=== PATIENT | female | born 1950 | race Caucasian/White ===

== ENCOUNTER 2018-06-07 15:24 | Outpatient (CLI) | payer MEDICARE, BC, SELFPAY ==
--- NOTE | 2018-06-07 15:41 | DI.RAD_ITS ---
SYMPTOMS/DIAGNOSIS: COUGH, UPPER RESPIRATORY INFECTION, J06.9 CHEST X-RAY, PA AND LATERAL: Comparison is 11/25/16. The heart size and pulmonary vasculature are stable and within normal limits. The lungs show no focal infiltrates, effusions or pneumothoraces. The bones appear intact. IMPRESSION: No acute pulmonary process.
== END 2018-06-07 15:44 ==
PROVIDERS: PCP Emergency Medicine; Visit Provider Internal Medicine
DX: R05 Cough (principal); J06.9 Acute upper respiratory infection, unspecified
CPT/HCPCS: 71046

== ENCOUNTER 2018-09-21 14:18 | Outpatient (CLI) | payer MEDICARE, BC, SELFPAY ==
--- NOTE | 2018-09-21 13:50 | DI.RAD_ITS ---
SYMPTOMS/DIAGNOSIS: COUGH, R05, ASTHMA, J45.909; BACK PAIN CHEST X-RAY, PA AND LATERAL: Comparison is 06/07/18. The heart is normal in size. The lungs are clear. The mediastinal structures and pleura appear intact. IMPRESSION: Normal chest. THORACIC SPINE: AP and lateral views. There is a very mild S-type scoliotic curvature of the spine. No acute fractures or subluxations are seen. Moderate degenerative changes are present in the spine. No acute fractures or subluxations are present. IMPRESSION: Degenerative changes in the thoracic spine. No acute abnormality.
[2018-09-21 15:02] LABS: Abs Immature Grans 0.02 k/cumm (0.0-0.09); Absolute Basophil Count 0.04 k/cumm (0.0-0.2); Absolute Lymphocyte Count 2.11 k/cumm (1.2-3.4); Absolute Monocyte Count 1.05 k/cumm (0.11-0.7); Absolute Neutrophil Count 3.65 k/cumm (1.2-6.7); Basophils % 0.6; Eosinophils % 4.2; HCT 42.1 % (36.0-46.0); Immature Grans % 0.3; Lymphocytes % 29.4; Mean Corp. HGB Concentration 33.3 g/dL (32.0-36.0); Mean Corpuscular Volume 90.1 fL (80-95); Mean Platelet Volume 9.8 fL (8.0-11.0); Monocytes % 14.6; Neutrophils % 50.9; Platelet Count 313 x1000/uL (130-400); RBC 4.67 m/cumm (4.00-5.20); RBC Distribution Width 14.1 % (11.7-14.6); White Blood Cell Count 7.17 k/cumm (4.4-10.8)
[2018-09-21 15:23] LABS: C-Reactive Protein 1.63 mg/dL (0.0-0.3)
[2018-09-21 16:04] LABS: ESR 21 MM/HR (0-30)
[2018-09-22 13:00] LABS: Albumin 60.7 % (55.8-66.1); Total Protein 7.2 g/dl (6.3-8.2)
== END 2018-09-21 14:38 ==
PROVIDERS: PCP Emergency Medicine; Visit Provider Emergency Medicine
DX: J45.909 Unspecified asthma, uncomplicated (principal); R07.1 Chest pain on breathing; M54.6 Pain in thoracic spine; M47.814 Spondylosis without myelopathy or radiculopathy, thoracic region
CPT/HCPCS: 36415; 85652; 71046; 72072; 84165; 85025; 86140

== ENCOUNTER 2018-10-05 01:27 | Outpatient (CLI) | payer MEDICARE, BC, SELFPAY ==
--- NOTE | 2018-10-05 | PFT_ITS ---
PULMONARY FUNCTION TEST REPORT Patient - Carisa Phillips 48 DATE OF SERVICE October 05, 2018 REQUESTING PROVIDER Jose Angel Walton D.O. INTERPRETATION OF STUDY Spirometry shows no evidence of obstructive airways disease. No bronchodilator response. LUNG VOLUMES - Lung volumes show no evidence of restriction. DIFFUSION CAPACITY- Normal. AIRWAY RESISTANCE - Normal. IMPRESSION Normal pulmonary function study. Clinical correlation recommended. When this study was compared to previous one from 05/06/12, the patient has a stable FVC and FEV1. Maria R Vuong M.D. ROSALINA/ T- 10/06/18
[2018-10-05] MEDS: Albuterol HFA 18 GM 200 PUFF INH IH (10:43)
[2018-10-05] MEDS: Inhaler, Assist Device 1 EACH MC (10:43)
== END 2018-10-05 01:47 ==
PROVIDERS: PCP Emergency Medicine; Visit Provider Emergency Medicine
DX: J45.909 Unspecified asthma, uncomplicated (principal); R05 Cough; R06.09 Other forms of dyspnea
CPT/HCPCS: 94060; 94150; 94726; 94729

== ENCOUNTER 2018-11-10 10:31 | Outpatient (CLI) | payer MEDICARE, BC, SELFPAY ==
[2018-11-10 13:39] LABS: ALT 47 U/L (12-78); AST 21 U/L (15-37); Albumin 3.9 g/dL (3.4-5.0); Alkaline Phosphatase 91 U/L (46-116); Anion Gap 12.3 mmol/L (3-11); BUN 15 mg/dL (7-18); Bilirubin, Total 0.4 mg/dL (0.2-1.0); CO2 25.7 mmol/L (21.0-32.0); CREATININE 0.84 mg/dL (0.55-1.02); Calcium 9.5 mg/dL (8.5-10.1); Calculated LDL 156 mg/dL; Chloride 106 mmol/L (98-107); Cholesterol 253 mg/dL (50-200); Glucose 110 mg/dL (70-100); HDL Cholesterol 79 mg/dL (40-60); Sodium 144 mmol/L (136-145); TSH (W/Ref FT4) 1.92 uIU/mL (0.358-3.74); Total Protein 7.3 g/dL (6.4-8.2); Triglyceride 93 mg/dL (30-150)
[2018-11-10 14:07] LABS: ESR 23 MM/HR (0-30)
== END 2018-11-10 10:51 ==
PROVIDERS: PCP Emergency Medicine; Visit Provider Internal Medicine
DX: I10 Essential (primary) hypertension (principal); J45.909 Unspecified asthma, uncomplicated
CPT/HCPCS: 36415; 80053; 80061; 83721; 85652; 84443

== ENCOUNTER 2018-11-30 00:58 | Outpatient (CLI) | payer MEDICARE, BC, SELFPAY ==
--- NOTE | 2018-11-30 11:25 | DI.MAMMO_ITS ---
SYMPTOMS/DIAGNOSIS: SCREENING, ADULT MEDICAL EXAM, Z00.00 MAMMOGRAM: Mammograms were interpreted according to the usual protocol including computer analysis with CAD system, tomosynthesis and C view imaging. Comparison with prior examinations. Breast density B. No suspicious masses or microcalcifications are seen. There is increased prominence of a focal asymmetric density in the outer left breast seen on the craniocaudad view. This area should be further evaluated with spot compression view. Ultrasound may be indicated at that time. IMPRESSION: Additional views of the left breast as described above. Category 0. MQSA ASSESSMENT OF FINDINGS: Incomplete: Needs additional imaging evaluation. Category 0. Patient will receive a letter notifying them of these results. BI-RADS category B. There are scattered areas of fibroglandular density.
== END 2018-11-30 01:18 ==
PROVIDERS: PCP Emergency Medicine; Visit Provider Internal Medicine
DX: Z12.31 Encounter for screening mammogram for malignant neoplasm of breast (principal); R92.8 Other abnormal and inconclusive findings on diagnostic imaging of breast
CPT/HCPCS: 77063; 77067

== ENCOUNTER 2018-12-03 01:06 | Outpatient (CLI) | payer MEDICARE, BC, SELFPAY ==
--- NOTE | 2018-12-03 14:44 | DI.COMBO_ITS ---
SYMPTOM/DIAGNOSIS: INCREASED PROMINENCE OF FOCAL ASYMMETRIC DENSITY LT LEFT BREAST ADDITIONAL VIEWS AND LEFT BREAST ULTRASOUND: Additional images are interpreted according to the usual protocol including tomosynthesis and 2D imaging. Additional views of the left breast again show an asymmetric density in the posterior outer left breast on the craniocaudad view. On the additional views, it appears similar compared to prior examinations dating back to 2013. A left breast ultrasound was performed of the upper outer and lower outer quadrants. No suspicious cystic or solid masses are seen. A benign appearing lymph node is seen in the upper outer quadrant. IMPRESSION: No definite evidence for malignancy. A 6 month follow up left breast mammogram is requested for re-evaluation. Category 3. MQSA ASSESSMENT OF FINDINGS: Probably benign. Six month follow-up recommended. Category 3. Patient will receive a letter notifying them of these results. BI-RADS category B. There are scattered areas of fibroglandular density. The findings were discussed with the patient on the date of the examination.
== END 2018-12-03 01:26 ==
PROVIDERS: PCP Emergency Medicine; Visit Provider Internal Medicine
DX: Z12.31 Encounter for screening mammogram for malignant neoplasm of breast (principal); R92.8 Other abnormal and inconclusive findings on diagnostic imaging of breast; N63.21 Unspecified lump in the left breast, upper outer quadrant; R59.0 Localized enlarged lymph nodes
CPT/HCPCS: 76642; 77063; 77067

== ENCOUNTER 2019-05-20 07:00 | Outpatient (CLI) | payer MEDICARE, BC, SELFPAY ==
[2019-05-20 12:31] LABS: Abs Immature Grans 0.03 k/cumm (0.0-0.09); Absolute Basophil Count 0.03 k/cumm (0.0-0.2); Absolute Lymphocyte Count 2.16 k/cumm (1.2-3.4); Absolute Monocyte Count 0.84 k/cumm (0.11-0.7); Absolute Neutrophil Count 4.52 k/cumm (1.2-6.7); Basophils % 0.4; Eosinophils % 3.8; HCT 40.9 % (36.0-46.0); HGB 13.8 g/dL (12.0-15.5); Immature Grans % 0.4 %; Lymphocytes % 27.4; Mean Corp. HGB Concentration 33.7 g/dL (32.0-36.0); Mean Corpuscular Hemoglobin 29.9 pg (27.0-33.0); Mean Corpuscular Volume 88.5 fL (80-95); Mean Platelet Volume 9.9 fL (8.0-11.0); Monocytes % 10.7; Neutrophils % 57.3; Platelet Count 369 x1000/uL (130-400); RBC 4.62 m/cumm (4.00-5.20); RBC Distribution Width 13.9 % (11.7-14.6); White Blood Cell Count 7.88 k/cumm (4.4-10.8)
[2019-05-20 12:54] LABS: ALT 38 U/L (14-59); AST 21 U/L (15-37); Albumin 3.9 g/dL (3.4-5.0); Alkaline Phosphatase 86 U/L (46-116); Amylase 44 U/L (25-115); Anion Gap 13.9 mmol/L (3-11); BUN 14 mg/dL (7-18); Bilirubin, Total 0.5 mg/dL (0.2-1.0); CO2 24.1 mmol/L (21.0-32.0); CREATININE 0.74 mg/dL (0.55-1.02); Calcium 9.5 mg/dL (8.5-10.1); Chloride 104 mmol/L (98-107); Glucose 105 mg/dL (74-106); Lipase 149 U/L (73-393); Potassium 4.1 mmol/L (3.5-5.1); Sodium 142 mmol/L (136-145); Total Protein 7.4 g/dL (6.4-8.2)
== END 2019-05-20 07:20 ==
PROVIDERS: PCP Emergency Medicine; Visit Provider Emergency Medicine
DX: I10 Essential (primary) hypertension (principal); R10.9 Unspecified abdominal pain
CPT/HCPCS: 36415; 80053; 83690; 82150; 85025

== ENCOUNTER 2019-05-24 01:17 | Outpatient (CLI) | payer MEDICARE, BC, SELFPAY ==
--- NOTE | 2019-05-24 10:17 | DI.MAMMO_ITS ---
EXAM: MG MAMMO DIAGNOSTIC UNI CLINICAL HISTORY: F/U ABNORMAL MAMMO, R92.8, 6-MO F/U. TECHNIQUE: Full field digital CC and MLO mammographic images were obtained with 3D tomosynthesis and utilizing computer aided detection (CAD). COMPARISON: 2009 to 2018. FINDINGS: This is a six-month follow-up for an area of asymmetric density in the lateral left breast. Masses/Architectural Distortion: None seen. Microcalcifications: No suspicious pleomorphic-type calcifications are seen. Skin Thickening/Nipple Retraction: None. Axilla: Unremarkable. IMPRESSION: 1. BI-RADS category 1, negative. No significant interval change with no specific features of maligna ncy noted. 2. Bilateral screening should be resumed in 6 months. BI-RADS Cat 1 - Negative Breast Density - Category B - Scattered areas of fibroglandular density A negative radiographic report should not delay biopsy if a dominant or clinically suspicious mass is present. Up to ten percent of cancers are not identified on mammography. A negative report may reinforce clinical impression. Adenosis and dense breasts may obscure an underlying neoplasm. False positive reports average 6 to 10%. Patient will receive a letter notifying them of these results.
== END 2019-05-24 01:37 ==
PROVIDERS: PCP Emergency Medicine; Visit Provider Internal Medicine
DX: Z12.31 Encounter for screening mammogram for malignant neoplasm of breast (principal); R92.8 Other abnormal and inconclusive findings on diagnostic imaging of breast; N64.59 Other signs and symptoms in breast
CPT/HCPCS: 77061; 77065; G0279

== ENCOUNTER 2019-05-26 02:29 | Outpatient (CLI) | payer MEDICARE, BC, SELFPAY ==
[2019-05-26] MEDS: Breeza Beverage 473 ML BTL PO ×2 (07:12→07:13)
[2019-05-26] MEDS: Omnipaque 350 MG/ML 50 ML BTL PO (07:13)
[2019-05-26 07:20] LABS: CREATININE 0.75 mg/dL (0.55-1.02)
--- NOTE | 2019-05-26 08:56 | DI.CT_ITS ---
EXAM: CT ABDOMEN PELVIS W CLINICAL HISTORY: ABD PAIN,R10.9 TECHNIQUE: CT examination of the abdomen and pelvis was performed with a bolus infusion of 50 cc of Omnipaque 350 and ingestion of dilute barium. COMPARISON: No exams were available for comparison FINDINGS: Images obtained through the lung bases are unremarkable. There is a question of wall thickening of the distal esophagus, endoscopy may be considered if clinically appropriate. There is mild hepatic steatosis. Spleen is unremarkable in appearance. No focal hepatic abnormality is seen. Gallbladder and bile ducts are CT normal. Pancreas appears normal. Adrenals and kidneys are normal with incidental small left renal cysts. No urinary tract calcification or obstruction. N o significant abdominal wall hernia. No significant abdominal or pelvic adenopathy. Abdominal aorta is of normal diameter and no major vascular abnormality is seen. Appendix is normal. No evidence o f diverticulitis or bowel obstruction. IMPRESSION: Mild hepatic steatosis. Question wall thickening of the distal esophagus, correlation with endoscopy may be obtained if clini silvia indicated to rule out esophagitis or neoplasm.
[2019-05-26] MEDS: Omnipaque 350 MG/ML 100 ML BTL IJ (09:04)
== END 2019-05-26 02:49 ==
PROVIDERS: PCP Emergency Medicine; Visit Provider Emergency Medicine
DX: R10.9 Unspecified abdominal pain (principal); K76.0 Fatty (change of) liver, not elsewhere classified; N28.1 Cyst of kidney, acquired; K22.8 Other specified diseases of esophagus
CPT/HCPCS: 74177; 82565; J3490; Q9967

== ENCOUNTER 2019-06-07 12:13 | Outpatient (CLI) | payer MEDICARE, BC, SELFPAY ==
[2019-06-07 13:51] LABS: Amylase 46 U/L (25-115); Lipase 158 U/L (73-393)
== END 2019-06-07 12:33 ==
PROVIDERS: PCP Emergency Medicine; Visit Provider Emergency Medicine
DX: R10.9 Unspecified abdominal pain (principal)
CPT/HCPCS: 36415; 83690; 82150

== ENCOUNTER → 2019-06-09 13:19 | Outpatient (BNVA) | payer MEDICARE, BC, SELFPAY | PROVIDERS: PCP Emergency Medicine; Referring Provider Emergency Medicine; Visit Provider Physical Therapy Assistant | DX: I10 Essential (primary) hypertension (principal); R10.9 Unspecified abdominal pain; R19.7 Diarrhea, unspecified | CPT/HCPCS: 99213 ==

== ENCOUNTER 2019-06-10 13:15 | Outpatient (REF) | payer MEDICARE, BC, SELFPAY ==
[2019-06-11 14:23] LABS: Campylobacter PCR Negative (Negative); Salmonella PCR Negative (Negative); Shiga Toxin PCR Negative (Negative); Shigella/Enteroinvasive Ecoli Negative (Negative)
== END 2019-06-10 13:35 ==
LOC: NCHCN 13:15
PROVIDERS: PCP Emergency Medicine; Visit Provider Physical Therapy Assistant
DX: R19.7 Diarrhea, unspecified (principal)
CPT/HCPCS: 87505; 87177

== ENCOUNTER 2019-06-14 09:31 | Day surgery (SDC) | payer MEDICARE, BC, SELFPAY ==
[2019-06-14 09:54] VITALS: BP 148/74; PULSE 84; RESP 16; TEMP 36.6; O2SAT 99
[2019-06-14] MEDS: Lactated Ringers 1,000 ML 80 ML IV (10:30)
--- NOTE | 2019-06-14 10:52 | W.PM.DSUDISC ---
Discharge Plan Disposition Patient Disposition: HOME Condition: Good Discharge Details Reason For Visit: EGD/Colonoscopy Attending Provider: Temi Montalvo Primary Care Provider: Jose Angel Walton Home Meds and New Rx's Prescriptions: Continued Breo Ellipta 200-25 mcg/dose blister with device 1 ea Inhalation DAILY Qty: 60 RF: 5 omega 3-yhw-stm-fish oil [Fish Oil] 1,000 mg (120 mg-180 mg) capsule 1 cap PO DAILY RF: 0 cholecalciferol (vitamin D3) 2,000 unit capsule 2,000 unit PO DAILY RF: 0 multivitamin Capsule 1 cap PO DAILY RF: 0 metoclopramide HCl [Reglan] 5 mg tablet 5 mg PO QAC Qty: 2 RF: 0 prochlorperazine maleate [Compazine] 5 mg tablet 5 mg PO Q4H PRN PRN (Reason: nausea and vomiting) Qty: 3 RF: 0 calcium carbonate [Calcium 600] 600 MG tablet 600 mg PO DAILY RF: 0 albuterol sulfate 8.5 GM HFA aerosol inhaler 2 puff Inhalation Q4H PRN Qty: 1 RF: 12 fluticasone propionate 16 GM spray,suspension 1 spray NS BID RF: 0 losartan-hydrochlorothiazide [Hyzaar] 100-25 mg tablet 1 tab PO DAILY Qty: 90 RF: 3 sertraline 50 mg tablet 50 mg PO DAILY Qty: 90 RF: 3 diltiazem HCl [Cardizem CD] 120 mg capsule,extended release 24hr 120 mg PO DAILY Qty: 90 RF: 3 potassium chloride 10 mEq tablet,ER particles/crystals 10 meq PO BID Qty: 180 RF: 4 pantoprazole [Protonix] 40 mg tablet,delayed release (DR/EC) 40 mg PO BID RF: 0 Discharge Instructions Additional Instructions: Findings: Your upper endoscopy was unremarkable. Routine biopsies were done. My office will contact you with biopsy results. One polyp was removed from the colon and random biopsies were done. Follow up: Plan for a colonoscopy in 5 years Please call if you develop: fevers >101.5 Nausea or Vomiting Abdominal pain that is not transient DAY SURGERY UNIT POST COLONOSCOPY INSTRUCTIONS 1. Because there will be medication in your system for the next 24 hours, you may feel a little sleepy. Your coordination will be affected. Therefore: a. Do not drive or operate dangerous equipment for 24 hours. b. Do not drink alcohol beverages for 24 hours (not even beer). c. Plan to go home and rest for the day. 2. Generally there are no restrictions on your activity after a day or so has gone by, but you may feel a bit fatigued for a few days. 3 After you arrive home you may have a light meal and return to a normal diet as you can tolerate it without feeling sick to your stomach. 4. After surgery, you may feel pain or discomfort. This should be only transient, but if it persists please contact your doctor. 5. If there are any questions regarding the findings of your procedure, please feel free to contact your doctor. 6. If you are unable to contact your doctor with a problem, contact the hospital at [phone]. 7. Continue all your regular medications unless directed otherwise. I understand the above instructions and have no questions. Signature of Patient or Responsible Adult Escort Date/Time Name of Responsible Adult Escort Signature of Nurse Date/Time Activity:: Activity as Tolerated Diet:: As Tolerated Discharge Orders Discharge Orders: Discharge Order (Routine); Ordered 06/14/19 Ordered By: Temi Montalvo DS: Diagnosis Discharge Diagnosis (1) GERD (gastroesophageal reflux disease): Status: Chronic (2) Colon polyp: Status: Acute
--- NOTE | 2019-06-14 11:30 | BOWEL_PTH ---
PATIENT: Carisa Phillips LOC: [facility] U#:[id number] AGE/SX: 69/F ROOM: RE06/14/[address]: Temi Montalvo MD : 1950 BED: DIS: 06/14/2019 SPEC #: [id number] RECD: 06/14/19 13:09 STATUS: RAMONA RE #: [id number] LEONEL: 06/14/19 11:[address]: Temi Montalvo DEPT: Surgical Specimen RECD BY: Mary Beth Lanza ENTERED: 06/14/19 13:10 SP TYPE: Bowel OTHR DR: Jose Angel Walton DO Tissues: 1 - BIOPSY BOWEL 2 - STOMACH BIOPSY 3 - BIOPSY BOWEL 4 - BIOPSY BOWEL Procedures: GROSS AND MICRO LEVEL 4 Comments: [id number]
[2019-06-14 13:00] VITALS: BP 158/73; PULSE 81; RESP 18; TEMP 36.4; O2SAT 100
[2019-06-14] MEDS: Simethicone 80 MG CHEW PO (13:17)
--- NOTE | 2019-06-15 08:04 | ENDO_ITS ---
REPORT OF OPERATIVE PROCEDURE DATE OF PROCEDURE June 14, 2019 PREOPERATIVE DIAGNOSES 1. Reflux. 2. Change in bowel habits. POSTOPERATIVE DIAGNOSES 1. Small hiatal hernia. 2. Minimal gastritis. 3. Cecal polyp. 4. Diverticulosis. PROCEDURES 1. EGD with duodenal biopsy and gastric biopsies. 2. Colonoscopy with snare polypectomy and random colon biopsies. SURGEON Temi Montalvo M.D. ANESTHESIA General. INDICATIONS This is a 69-year-old woman who complains of flushing, crampy abdominal pain and diarrhea. Her last c olonoscopy in 2012 was normal. She also has a longstanding history of reflux and has had to increase her PPI recently. PROCEDURE DESCRIPTION The patient was placed in the left lateral decubitus position. Propofol was titrated to sedation. The scope was advanced into her esophagus and down into the stomach and duodenum. At this point, the pat ient may have had some bronchospasm. Her saturations decreased, so I removed the scope. With a withdr aw thrust and oxygenation, her saturations improved and I was able to continue with the procedure. Th e scope was re-inserted into the esophagus under direct visualization and passed down into the stomac h and duodenum. Biopsies were taken from the second portion to evaluate for celiac disease. The duode nal bulb exhibited some minimal inflammation. The gastric antrum also exhibited some minimal inflamma tion, which was unlikely to be symptomatic. I did take routine biopsies from the antrum to check for h. Pylori. Retroflexed view of the fundus and lesser curvature showed a small hiatal hernia. The GE j unction showed no evidence of masses, inflammation, Vieira's or strictures. The scope was slowly wi thdrawn with no other esophageal lesions found. Digital rectal examination revealed some slightly decreased sphincter tone. The scope was advanced to the cecum without difficulty. She was noted to have a slightly tortuous colon. The ileocecal valve a nd appendiceal orifice were clearly identified. There was a difficult to access polyp just on the oth er side of the ileocecal valve, which required re-insertion of the scope of the several times. I was able to remove most of it using snare polypectomy with minimal cautery. The remainder of the polyp wa s removed with the cold forceps with good result. This was less than 1 cm in size. The scope was slow ly withdrawn with random biopsies performed throughout to evaluate for possible microscopic colitis a s the cause of her diarrhea. No other abnormalities were seen throughout the ascending, transverse, o r descending colon. The sigmoid region exhibited some mild diverticular change. The rectum was normal including on retroflexed view with the exception of some prominent internal hemorrhoids. She tolerat ed the procedure well and was stable to Recovery. She will need a followup colonoscopy in five years pending biopsy results.
== END 2019-06-14 13:55 | disposition home or self-care (01) ==
PROVIDERS: PCP Emergency Medicine; Visit Provider Surgery
PROC: (CPT 45385; principal; 2019-06-14 11:30)
DX: K21.9 Gastro-esophageal reflux disease without esophagitis (principal); R19.4 Change in bowel habit; K31.9 Disease of stomach and duodenum, unspecified; D12.0 Benign neoplasm of cecum; K44.9 Diaphragmatic hernia without obstruction or gangrene; K57.30 Diverticulosis of large intestine without perforation or abscess without bleeding; K29.70 Gastritis, unspecified, without bleeding; K64.8 Other hemorrhoids
CPT/HCPCS: 45385; 45380; 43239; 88305; J2704

== ENCOUNTER 2020-01-05 00:51 | Outpatient (CLI) | payer MEDICARE, BC, SELFPAY ==
--- NOTE | 2020-01-05 12:45 | DI.MAMMO_ITS ---
EXAM: MAMMO SCREENING CLINICAL HISTORY: screening,Z12.39 TECHNIQUE: Mammograms were interpreted according to the usual protocol including computer analysis w Accurence CAD system, tomosynthesis and C-view imaging. COMPARISON: 2010 through 2019 FINDINGS: The breasts are composed of scattered fibroglandular densities, Breast Density category B. No suspicious masses or suspicious microcalcifications are seen. Vascular calcifications are noted. No skin thickening or abnormal axillary lymph nodes are seen. There has been no significant change from prior exams. IMPRESSION: BI-RADS Category 1, Negative mammogram Yearly screening mammography is recommended. Breast Density Category B, scattered fibroglandular densities. A negative radiographic report should not delay biopsy if a dominant or clinically suspicious mass is present. Up to ten percent of cancers are not identified on mammography. A negative report may reinforce clinical impression. Adenosis and dense breasts may obscure an underlying neoplasm. False positive reports average 6 to 10%. Patient will receive a letter notifying them of these results.
== END 2020-01-05 01:11 ==
PROVIDERS: PCP Nurse Practitioner; Visit Provider Nurse Practitioner
DX: Z12.31 Encounter for screening mammogram for malignant neoplasm of breast (principal); R92.2 Inconclusive mammogram
CPT/HCPCS: 77063; 77067

== ENCOUNTER 2020-03-12 02:08 | Outpatient (CLI) | payer MEDICARE, BC, SELFPAY ==
[2020-03-12 11:06] LABS: Calculated LDL 60 mg/dL (<100); Cholesterol 158 mg/dL (<200); HDL Cholesterol 79 mg/dL (40-60); Triglyceride 95 mg/dL (<150)
== END 2020-03-12 02:28 ==
PROVIDERS: PCP Nurse Practitioner; Visit Provider Nurse Practitioner
DX: I10 Essential (primary) hypertension (principal)
CPT/HCPCS: 36415; 80061

== ENCOUNTER 2020-12-26 18:57 | Emergency (ER) | payer MEDICARE, BC, SELFPAY ==
[2020-12-26 19:19] VITALS: BP 176/87; PULSE 116; RESP 18; TEMP 37.6; O2SAT 96
--- NOTE | 2020-12-26 19:19 | ED.GENADUL_ITS ---
Discharge Plan Disposition Patient Disposition: HOME Condition: Stable Discharge Details Clinical Impression: Pharyngitis Primary Care Provider: Promise Lucio ED Provider: Maribell Cota Home Meds and New Rx's Prescriptions: Continued sertraline 100 mg tablet 100 mg PO DAILY Qty: 30 RF: 0 atorvastatin 40 mg tablet 40 mg PO QPM Qty: 90 RF: 4 diltiazem HCl [Cardizem CD] 120 mg capsule,extended release 24hr 120 mg PO BID Qty: 180 RF: 3 Breo Ellipta 100-25 mcg/dose blister with device 1 inh IH DAILY Qty: 60 RF: 11 potassium chloride 10 mEq tablet,ER particles/crystals 10 meq PO BID Qty: 180 RF: 4 losartan-hydrochlorothiazide [Hyzaar] 100-25 mg tablet 1 tab PO DAILY Qty: 90 RF: 3 fluticasone propionate 50 mcg/actuation spray,suspension 1 spray NS BID Qty: 15.8 RF: 4 cholecalciferol (vitamin D3) 2,000 unit capsule 2,000 unit PO DAILY RF: 0 multivitamin Capsule 1 cap PO DAILY RF: 0 calcium carbonate [Calcium 600] 600 MG tablet 600 mg PO DAILY RF: 0 pantoprazole [Protonix] 40 mg tablet,delayed release (DR/EC) 40 mg PO DAILY Qty: 90 RF: 3 albuterol sulfate 90 mcg/actuation HFA aerosol inhaler 2 puff Inhalation Q4H PRN Qty: 1 RF: 5 Discharge Instructions Instructions: Pharyngitis (ED) Additional Instructions: Your rapid strep testing is negative here today. Your rapid Covid testing is pending. Please quarantine until these results are back. Your exam is reassuring. You do not have a fever here. You may continue with Tylenol and ibuprofen as needed for fever or sore throat. Please follow-up with your primary care in 1 week for reevaluation. If you develop inability stay hydrated, inability to swallow, shortness of breath, difficulty breathing or other new/worsening symptoms to seek care urgently once again. Referrals: Promise Lucio, [facility] [Primary Care Provider] - Discharge Data Discharge Date/Time-TO BE ENTERED AT DEPARTURE: 12/26/20 20:55 Medical Decision Making Patient is a pleasant 70 year old female, accompanied by , with c/c of fever and sore throat. Began this AM. Denies cough. Patient sniffling. Denies CP, SOB. Reports fever with t max of 101.3 at home. Took APAP 2 hours prior to arrival. Reports this came on after having FB sensation after taking her calcium today. She no longer has a foreign body sensation. States that she is been drinking a large amount of water. No known sick contacts. Patient is vaccinated. 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 Patient is concerned that she may have contracted COVID-19. Initial temp was elevated, this was complted with temporal probe, she was afebrile intraorally. She appears nontoxic. No abnormalities noted on exam. Rapid strep testing negative. COVID-19 testing pending. Advised likely viral etiology. She has no retained FB sensation from her pill this AM. Encouraged hydration. She will quarantine. Advised on return precautions. Advised f/u with PCP in the next 1-2 weeks. Advised honey, tylenol, ibuprofen as needed for discomfort. All of her questions and concerns were addressed, she is in agreement with this plan. HPI General Mode of arrival: ambulatory . Date/Time Provider Initiated Documentation: 12/26/20 19:19 . Limitations to Documentation: no limitations . Information obtained by: patient, family () and RN notes reviewed . History of Present Illness 70 year old F presents to the emergency department with the chief complaint of fever, sore throat, fatigue, described as moderate, with intensity rated at 7. Quality is described as burning, Patient started experiencing this hour(s) and it has been constant. No relieving factors improve symptom(s), No exacerbating factors reported . Patient notes fever/chills; denies chest pain, cough, diaphoresis, nausea/vomiting, rash and shortness of breath. Patient did receive the following treatments prior to arrival, other (APAP) Related Data Home Medications Medication Instructions Recorded Confirmed calcium carbonate [Calcium 600] 600 mg PO DAILY 10/18/12 12/20/20 cholecalciferol (vitamin D3) 50 2,000 unit PO DAILY 12/08/18 12/20/20 mcg (2,000 unit) capsule multivitamin 1 cap PO DAILY 12/08/18 12/20/20 fluticasone propionate 50 1 spray NS BID #15.8 ml 06/14/20 12/20/20 mcg/actuation nasal spray,suspension losartan 100 1 tab PO DAILY #90 tab-cap 06/14/20 12/20/20 mg-hydrochlorothiazide 25 mg tablet pantoprazole 40 mg tablet,delayed 40 mg PO DAILY #90 tab 07/16/20 12/20/20 release albuterol sulfate 90 mcg/actuation 2 puff INHALATION Q4H PRN #1 10/01/20 12/20/20 aerosol inhaler inhaler atorvastatin 40 mg tablet 40 mg PO QPM #90 tab 12/20/20 12/20/20 diltiazem HCl 120 mg 120 mg PO BID #180 tab-cap 12/20/20 12/20/20 capsule,extended release 24 hr fluticasone furoate 100 1 inh IH DAILY #60 ea 12/20/20 12/20/20 mcg-vilanterol 25 mcg/dose inhalation powder potassium chloride 10 mEq 10 meq PO BID #180 tab 12/20/20 12/20/20 tablet,extended release(part/cryst) sertraline 100 mg tablet 100 mg PO DAILY #30 tab 12/20/20 12/20/20 Previous Rx's Medication Instructions Recorded fluticasone propionate 50 1 spray NS BID #15.8 ml 06/14/20 mcg/actuation nasal spray,suspension losartan 100 1 tab PO DAILY #90 tab-cap 06/14/20 mg-hydrochlorothiazide 25 mg tablet pantoprazole 40 mg tablet,delayed 40 mg PO DAILY #90 tab 07/16/20 release albuterol sulfate 90 mcg/actuation 2 puff INHALATION Q4H PRN #1 10/01/20 aerosol inhaler inhaler atorvastatin 40 mg tablet 40 mg PO QPM #90 tab 12/20/20 diltiazem HCl 120 mg 120 mg PO BID #180 tab-cap 12/20/20 capsule,extended release 24 hr fluticasone furoate 100 1 inh IH DAILY #60 ea 12/20/20 mcg-vilanterol 25 mcg/dose inhalation powder potassium chloride 10 mEq 10 meq PO BID #180 tab 12/20/20 tablet,extended release(part/cryst) sertraline 100 mg tablet 100 mg PO DAILY #30 tab 12/20/20 Allergies Allergy/AdvReac Type Severity Reaction Status Date / Time budesonide Allergy Mild ITCH Verified 12/20/20 11:07 formoterol Allergy Mild ITCH Verified 12/20/20 11:07 amlodipine AdvReac Intermediate ANKLE Verified 12/20/20 11:07 SWELLING DOG DANDER Allergy Mild Other (See Uncoded 12/20/20 11:07 Comment) DUST Allergy Mild Uncoded 12/20/20 11:07 Review of Systems Constitutional Constitutional: Reports as per HPI and Denies headache(s) Eyes Eyes: Reports as per HPI, Denies eye discharge and Denies irritation ENT Ears, Nose, Mouth, and Throat: Reports as per HPI and Denies headache(s) Cardiovascular Cardiovascular: Reports as per HPI, Denies chest pain and Denies dyspnea Respiratory Respiratory: Reports as per HPI and Denies dyspnea Gastrointestinal Gastrointestinal: Reports as per HPI, Denies abdominal pain, Denies change in bowel habits, Denies nausea and Denies vomiting Integumentary/Breasts Skin/Breast: Reports as per HPI and Denies rash Neurologic Neurologic: Reports as per HPI and Denies headache(s) [facility] Medical History (Updated 12/26/20 @ 20:52 by ABEL Munoz) Fracture of radius History of ectopic Inversion of nipple left Verruca She can get [id number] salicylic acid topical to apply to warts daily or every other day. Return monthly or as needed for repeat of cyotherapy. Surgical History Abdominal hysterectomy (~1976) Bilateral salpingectomy with oophorectomy (~1976) Colonoscopy - IV Sedation (12/02/12) NEGATIVE; DR. Ioana KING EGD - MAC (~2009) neg History of bilateral salpingo-oophorectomy History of colonoscopy (~05/2019) History of esophagogastroduodenoscopy , Ectopic sinus surgery (~2003) Status post operation on paranasal sinus Family History Mother , 81 Essential hypertension Heart disease Father , 84 Essential hypertension Heart disease Sister No problems noted. Brother No problems noted. Paternal Grandmother Cancer Sister No problems noted. 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 Do you feel safe at home: Yes Do you feel safe in your relationship?: Yes Exam Const General: cooperative, healthy appearing, comfortable, no acute distress, well developed and well groomed Nutritional Appearance: average body habitus and well nourished Orientation: alert and awake [facility] Head: normal to inspection, normocephalic and atraumatic Ears: hearing grossly normal bilaterally, external ears normal and TM's normal bilaterally General nose exam: external nose normal and nares normal Face and sinus: normal facial exam, sinuses nontender and face symmetric Mouth: oral mucosae normal, lip normal, tongue normal, oropharynx normal and moist mucous membranes Teeth and gingiva: dentition normal Throat: posterior oropharynx normal, tonsils normal and uvula midline Eyes General: appearance normal, both eyes and all related structures Neck Neck: normal visual inspection, full ROM, no lymphadenopathy, no meningeal signs, trachea midline and supple Thyroid: thyroid normal Resp Effort & Inspection: normal respiratory effort, able to speak in complete sentences and no respiratory distress Auscultation: clear to auscultation bilaterally, no rales, no rhonchi and no wheezes Cardio Rate: regular rate Rhythm: regular rhythm Heart Sounds: S1 normal and S2 normal Skin General skin exam: no rashes or lesions noted Neuro General: patient alert and patient awake Cognition: normal cognition Speech: speech normal Gait: normal gait Psych Appearance: grossly normal and well kempt Mental Status: mental status grossly normal Speech and Movement: speech and movement normal
[2020-12-26] MEDS: Ibuprofen 600 MG TAB PO (20:02)
[2020-12-26 20:28] VITALS: BP 156/65; PULSE 100; RESP 18; TEMP 38.4; O2SAT 96
[2020-12-26 20:41] VITALS: TEMP 37
[2020-12-26 21:01] VITALS: BP 112/70; RESP 16; TEMP 37; O2SAT 98
[2020-12-28 12:14] LABS: COVID-19 RT-PCR UVMMC Result Negative (Negative)
--- NOTE | 2020-12-28 17:18 | NUR.NOTE ---
Nursing Note: Attempted to call patient on home and cell phone number to notify of negative covid results. No answer, left message to call back for results. 5 minutes later patient returned call and was notified of negative covid results.
== END 2020-12-26 20:55 | disposition home or self-care (01) ==
PROVIDERS: Emergency Provider Physician Assistant; PCP Nurse Practitioner
DX: J02.9 Acute pharyngitis, unspecified (principal); Z20.822 Contact with and (suspected) exposure to COVID-19
CPT/HCPCS: 87880; 99282; U0003; U0005; 87081

== ENCOUNTER 2021-01-01 03:23 | Outpatient (CLI) | payer MEDICARE, BC, SELFPAY ==
[2021-01-01 12:42] LABS: CREATININE 0.8 mg/dL (0.55-1.02); Calculated LDL 61 mg/dL (<100); Cholesterol 152 mg/dL (<200); HDL Cholesterol 77 mg/dL (40-60); Potassium 3.6 mmol/L (3.5-5.1); Triglyceride 70 mg/dL (<150)
[2021-01-01 13:43] LABS: Hemoglobin A1C 6.4 % (<5.7)
== END 2021-01-01 03:24 | disposition home or self-care (01) ==
LOC: LOS 03:24
PROVIDERS: PCP Nurse Practitioner; Visit Provider Nurse Practitioner
DX: I10 Essential (primary) hypertension (principal); R73.09 Other abnormal glucose
CPT/HCPCS: 36415; 80061; 82565; 83036; 84132

== ENCOUNTER 2021-01-10 02:05 | Outpatient (CLI) | payer MEDICARE, BC, SELFPAY ==
--- NOTE | 2021-01-10 07:45 | DI.DEXA_ITS ---
Exam(s) XR DEXA BONE DENSITY W/WO LACEY EXAM: XR DEXA BONE DENSITY W/WO LACEY CLINICAL HISTORY: screen osteoporosis, ASYMPTOMATIC MENOPAUSAL STATE, Z78.0 TECHNIQUE: Routine DEXA evaluation of the lumbar spine, hip, or forearm. COMPARISON: No exams were available for comparison FINDINGS: Performed on a Hologic unit. Lateral image: No compression fracture evident. Lumbar Spine total T-score: -1.7 Hip total T-score:-1.3. Independent reading at the femoral neck yields a T-score of -1.8 Forearm total T-score: -3.2 IMPRESSION: Bone mineral density measures in the osteopenia range for the lumbar spine and hip. Measures in the osteoporosis range at the wrist-forearm.. Fracture risk is moderate-high. Note: Any spine fracture indicates 5x risk for subsequent spine fracture and 2x risk for subsequent h ip fracture. World Health Organization criteria for BMD interpretation classify patients: Normal...... T- Score at or above -1.0 Osteopenic... T- Score between -1.0 and -2.5 Osteoporosis... T-Score at or below -2.5
== END 2021-01-10 02:25 ==
PROVIDERS: PCP Nurse Practitioner; Visit Provider Nurse Practitioner
DX: Z78.0 Asymptomatic menopausal state (principal); Z13.820 Encounter for screening for osteoporosis; M81.0 Age-related osteoporosis without current pathological fracture; M85.89 Other specified disorders of bone density and structure, multiple sites
CPT/HCPCS: 77080

== ENCOUNTER 2021-01-15 01:35 | Outpatient (CLI) | payer MEDICARE, BC, SELFPAY ==
--- NOTE | 2021-01-15 07:45 | DI.MAMMO_ITS ---
Exam(s) MAMMO SCREENING EXAM: MAMMO SCREENING CLINICAL HISTORY: screening,Z12.39 TECHNIQUE: Bilateral full field digital CC and MLO mammographic images were obtained with 3D tomosyn thesis and utilizing computer aided detection (CAD). COMPARISON: Available for comparison. FINDINGS: Masses/Architectural Distortion: None seen. Microcalcifications: No suspicious pleomorphic-type are seen. Skin Thickening/Nipple Retraction: None. IMPRESSION: 1. No significant interval change with no specific features of malignancy noted. 2. Unless there is more urgent need, screening mammography is recommended, as per [place] [employer] guidelines. BI-RADS Category 1 - Negative Breast Density - Category B - Scattered areas of fibroglandular density Breast density category C or D implies that the patient has dense breast tissue. Dense breast tissue is very common and is not abnormal but dense breast tissue can make it harder to find cancer on a ma mmogram. Also, dense breast tissue may increase their breast cancer risk. This information about the result of the mammogram report was provided to the patient to raise their awareness. Use this report when you speak with the patient about their risks for breast cancer, which includes their family hist ory. At that time, you may recommend for more screening tests (Ultrasound or MRI) as they might be us eful based on their risk. A negative radiographic report should not delay biopsy if a dominant or clinically suspicious mass is present. Up to ten percent of cancers are not identified on mammography. A negative report may reinforce clinical impression. Adenosis and dense breasts may obscure an underlying neoplasm. False positive reports average 6 to 10%. Patient will receive a letter notifying them of these results.
== END 2021-01-15 01:55 ==
PROVIDERS: PCP Nurse Practitioner; Visit Provider Nurse Practitioner
DX: Z12.31 Encounter for screening mammogram for malignant neoplasm of breast (principal)
CPT/HCPCS: 77063; 77067

== ENCOUNTER 2021-03-05 12:32 | Outpatient (CLI) | payer MEDICARE, BC, SELFPAY ==
--- NOTE | 2021-03-05 12:30 | RT.EKG_ITS ---
APPROVED REPORT Exam: Resting ECG Reason for Exam: chest pain Patient Location: O HR:80 bpm ECG Measurements Heart Rate 80 AXIS CA 167 P 30 QRSd 73 QRS 48 QT 370 T 89 QTc 427 Conclusion Sinus rhythm...normal P axis, V-rate 60- 99 Normal Electrocardiogram
== END 2021-03-05 12:33 | disposition home or self-care (01) ==
LOC: DI.CM 12:33
PROVIDERS: PCP Nurse Practitioner; Visit Provider Physician Assistant
DX: R07.9 Chest pain, unspecified (principal)
CPT/HCPCS: 93010

== ENCOUNTER 2021-03-05 13:28 | Observation (INO) | payer MEDICARE, BC, SELFPAY ==
[2021-03-05] VITALS (53 sets, daily range): BP systolic 122–185; BP diastolic 48–91; PULSE 64–80; RESP 11–20; TEMP 36.3–36.8; O2SAT 92–98
--- NOTE | 2021-03-05 13:30 | RT.EKG_ITS ---
APPROVED REPORT Exam: Resting ECG Reason for Exam: chest pain Patient Location: E HR:77 bpm ECG Measurements Heart Rate 77 AXIS TN 167 P 21 QRSd 77 QRS 38 QT 384 T 84 QTc 435 Conclusion Sinus rhythm...normal P axis, V-rate 60- 99
--- OUTSIDE RECORDS SUMMARY | 2021-03-05 13:39 | XMS_ITS ---
:1950 Author Care Team Providers Name Role Phone [facility] Primary Care Provider [phone] AMARJIT RIVERO Primary Care Provider [phone] Allergies Code Code System Name Reaction Severity Status Onset RxNorm Amlodipine ? ? Active ? Animal Dander ? ? Active ? RxNorm Budesonide Itching ? Active ? RxNorm Formoterol Itching ? Active ? Grass Pollen ? ? Active ? House Dust Mite ? ? Active ? Medications Name Status Start Date Stop Date ? ? Afrin Sinus and Allergy Active ? Not avai lable 2 puffs per nostril every morning atorvastatin 40 mg tablet Active ? Not av ailable azithromycin 250 mg tablet Completed ? 01/27 Breo Ellipta 100 mcg-25 mcg/dose powder for inhalation Active ? Not available Inhale 1 puff every day by inhalation route. Breo Ellipta 200 mcg-25 mcg/dose powder for inhalation Active ? Not available Inhale 1 puff every day by inhalation route. calcium carbonate 600 mg (1,500 mg)-vitamin D3 2,500 unit capsul e Active ? Not available Take by oral route. Cardizem 120 mg tablet Active ? Not avail able Take 1 tablet 3 times a day by oral route. Cartia XT 120 mg capsule,extended Active ? Not available release doxycycline monohydrate 100 mg capsule Completed ? 01/27/2019 fluticasone propionate 50 mcg/actuation Active ? Not available nasal spray,suspension Lipitor 10 mg tablet Active ? Not availab le Take 1 tablet every day by oral route. losartan 100 mg-hydrochlorothiazide 25 Active ? Not available mg tablet metoclopramide 5 mg tablet Active ? Not a vailable pantoprazole 40 mg tablet,delayed Active ? Not available release potassium chloride ER 10 mEq capsule,extended release Active ? Not available Take 1 capsule every day by oral route. potassium chloride ER 10 mEq Active ? Not available tablet,extended release potassium chloride ER 10 mEq Active ? Not available tablet,extended release(part/cryst) prednisone 10 mg tablet Active ? Not avai lable prednisone 20 mg tablet Completed ? 01/28/20 19 prochlorperazine maleate 5 mg tablet Active ? Not available Proventil HFA 90 mcg/actuation aerosol Active ? Not available inhaler sertraline 50 mg tablet Active ? Not avai lable Virtussin AC 10 mg-100 mg/5 mL oral Completed ? 01/27/2019 liquid Problems Name Status Onset Date Source ? Asthma Active 01/12/2018 ? Hypertensive Disorder Active 01/24/2019 ? Chronic Rhinitis Active 01/24/2019 ? Gastroesophageal Reflux Disease Active 01/24/2019 ? Ectopic Active 01/24/2019 ? Heart Murmur Active 01/24/2019 ? Total Hysterectomy with Removal of Active 01/24/2019 ? Both Tubes and Ovaries Sinusitis Co-occurrent with Nasal Active 01/24/2019 ? Polyps Posterior Rhinorrhea Active ? History Procedure by Method Unknown ? History Procedures Date Name Performed by ? 05/18/1976 Hysterectomy Information not avai lable Results Lab Results None recorded. Past Encounters 01/20/2020 Asthma Maria R Vuong MD: [address] [place] [address] Dr [address] [facility] [address] [address], Ph. Social History Tobacco Smoking Status Never Smoker Vaccine List Vaccine Type influenza, injectable, quadrivalent 03/17/2018 pneumococcal conjugate PCV 13 12/19/2016 rubella varicella Plan of Care Reminders Provider Appointments None ? ? recorded. Lab None ? ? recorded. Referral None ? ? recorded. Procedures None ? ? recorded. Surgeries None ? ? recorded. Imaging None ? ? recorded. Vitals 01/20/2020 01:45PM Office 15 Height Weight BMI Blood Pressure 156.21 cm 74 kg 30.3 kg/m2 123/72 mm[Hg] 01/27/2019 10:00AM Office 30 Height Weight BMI Blood Pressure 156.21 cm 70.9 kg 29.1 kg/m2 142/68 mm[Hg] 01/09/2017 Height Weight Blood Pressure 154.94 cm 72.75 kg 138/68 mm[Hg] 12/19/2016 Height Weight Blood Pressure 154.94 cm 73.68 kg 150/80 mm[Hg]
[2021-03-05 14:04] LABS: Abs Immature Grans 0.02 10^3/uL (0.0-0.06); Absolute Basophil Count 0.04 10^3/uL (0.0-0.2); Absolute Eosinophil Count 0.28 10^3/uL (0.0-0.7); Absolute Lymphocyte Count 2.44 10^3/uL (1.2-3.4); Absolute Monocyte Count 0.99 10^3/uL (0.1-0.8); Absolute Neutrophil Count 6.65 10^3/uL (1.2-6.7); Basophils % 0.4; Eosinophils % 2.7; HCT 41.5 % (36.0-46.0); HGB 13.7 g/dL (11.2-15.7); Immature Grans % 0.2; Lymphocytes % 23.4; MCH 29.1 pg (27.0-33.0); MCV 88.3 fL (80-95); MPV 10.1 fL (8.0-11.0); Monocytes % 9.5; Neutrophils % 63.8; Nucleated RBC 0 %; Platelet Count 322 10^3/uL (130-400); RDW 13.8 % (11.7-14.6); RDW-SD 44.8 fL; WBC 10.42 10^3/uL (4.4-10.8)
[2021-03-05 14:25] LABS: Magnesium 2.1 mg/dL (1.8-2.4); NT-proBNP 109 pg/mL (<300)
[2021-03-05 14:42] LABS: ALT 49 U/L (14-59); AST 33 U/L (15-37); Albumin 4.4 g/dL (3.4-5.0); Alkaline Phosphatase 91 U/L (46-116); Anion Gap 10.7 mmol/L (3-11); BUN 18 mg/dL (7-18); Bilirubin, Total 0.6 mg/dL (0.2-1.0); CO2 28.3 mmol/L (21.0-32.0); CREATININE 0.9 mg/dL (0.55-1.02); Calcium 9.4 mg/dL (8.5-10.1); Chloride 100 mmol/L (98-107); Glucose 124 mg/dL (74-106); Potassium 3.5 mmol/L (3.5-5.1); Sodium 139 mmol/L (136-145); Total Protein 8.1 g/dL (6.4-8.2)
[2021-03-05 14:44] LABS: Troponin I < 0.05 ng/mL (<0.06)
--- NOTE | 2021-03-05 14:45 | DI.RAD_ITS ---
Exam(s) XR CHEST 2V PA LATERAL EXAM: XR CHEST 2V PA LATERAL CLINICAL HISTORY: Chest pain TECHNIQUE: 2D digital imaging was performed of the chest. Images were obtained. PA and lateral v iews were obtained. COMPARISON: CR XR CHEST 2V PA LATERAL from 09/21/2018 FINDINGS: MEDIASTINUM: Normal. HEART: Normal. PULMONARY VASCULATURE: Normal. LUNGS: Clear. PLEURAL SPACE: No pleural effusion or pneumothorax. BONE:Within normal limits for the patient's age. OTHER FINDINGS:Normal. IMPRESSION: No acute pulmonary findings. DATA REPOSITORY: RADIATION DOSE DELIVERED:
--- NOTE | 2021-03-05 14:49 | ED.GENADUL_ITS ---
Discharge Plan Disposition Patient Disposition: [facility] INPATIENT Condition: Stable Discharge Details Clinical Impression: Atypical chest pain Admit Date/Time: 03/05/21 17:28 Admit Provider: Rex Martinez Attending Provider: Rex Martinez Primary Care Provider: Promise Lucio ED Provider: Mary Beth Bailey Discharge Data Discharge Date/Time-TO BE ENTERED AT DEPARTURE: 03/05/21 18:09 Medical Decision Making <Gisella Cameron - Last Filed: 03/12/21 08:16> 70-year-old female with past medical history of diabetes, hyperlipidemia, GERD, asthma, osteoporosis presented to the ER with chief complaint of midsternal chest pain which has been constant for the last few days. She denies any radiation to her arms or neck. She reports mild postnasal drip-like nonproductive cough. Denies any fever chills abdominal pain no nausea vomiting diarrhea. On initial exam she is complaining of 6 out of 10 pain to her chest. Only cardiac history is a reported murmur at childhood. She does not take aspirin on a daily basis. Surgical history includes abdominal hysterectomy, oophorectomy, colonoscopy, sinus surgery. She is a former smoker. She is vaccinated for COVID-19. Patient was seen prior to arrival at [facility] and referred here. At this time cardiac work-up ordered including serial troponins, proBNP due to shortness of breath Initial labs show no leukocytosis, CMP largely within normal limits glucose slightly elevated at 124, initial troponin within normal limits, proBNP 109 Discussed plan of care and work-up including chest x-ray, aspirin, sublingual nitro 0.4 mg x 3 as needed chest pain and blood pressure, patient is aware of the 3-hour troponin and is willing to stay for that. EKG was reviewed by [Dr. Matthew Barillas MD] ER attending, please see his official report old EKG was available for review no significant change noted by me. Patient has been given 1 NTG SL per RN report. 1604: Care to be handed out to oncoming provider ABEL iXao pending second troponin, and disposition. Pending negative troponin with outpatient stress test and cardiology follow-up. <ABEL Xiao - Last Filed: 03/05/21 22:39> Care was transitioned to [place] from Christina Aldrich, given patient's heart score of 5 secondary to age and comorbidities, complete resolution of pain with 2 nitroglycerin think admitting the patient at this time for stress test is reasonable Patient given aspirin upon arrival Blood pressure is stable and chest pain-free Chest x-ray does not show acute abnormality HPI <Gisella Cameron - Last Filed: 03/12/21 08:16> General Mode of arrival: ambulatory . Date/Time Provider Initiated Documentation: 03/05/21 13:31 . Limitations to Documentation: no limitations . Information obtained by: patient, RN notes reviewed and old records reviewed . HPI Narrative: 70-year-old female with past medical history of diabetes, hyperlipidemia, GERD, asthma, osteoporosis presented to the ER with chief complaint of midsternal chest pain which has been constant for the last few days. She denies any radiation to her arms or neck. She reports mild postnasal drip-like nonproductive cough. Denies any fever chills abdominal pain no nausea vomiting diarrhea. On initial exam she is complaining of 6 out of 10 pain to her chest. Only cardiac history is a reported murmur at childhood. She does not take aspirin on a daily basis. Surgical history includes abdominal hysterectomy, oophorectomy, colonoscopy, sinus surgery. She is a former smoker. She is vaccinated for COVID-19. Patient was seen prior to arrival at [facility] and referred here. Related Data Home Medications Medication Instructions Recorded Confirmed calcium carbonate [Calcium 600] 600 mg PO DAILY 10/18/12 03/07/21 cholecalciferol (vitamin D3) 50 2,000 unit PO DAILY 12/08/18 03/07/21 mcg (2,000 unit) capsule multivitamin 1 cap PO DAILY 12/08/18 03/07/21 fluticasone propionate 50 1 spray NS BID #15.8 ml 06/14/20 03/07/21 mcg/actuation nasal spray,suspension losartan 100 1 tab PO DAILY #90 tab-cap 06/14/20 03/07/21 mg-hydrochlorothiazide 25 mg tablet pantoprazole 40 mg tablet,delayed 40 mg PO DAILY #90 tab 07/16/20 03/07/21 release albuterol sulfate 90 mcg/actuation 2 puff INHALATION Q4H PRN #1 10/01/20 03/07/21 aerosol inhaler inhaler atorvastatin 40 mg tablet 40 mg PO QPM #90 tab 12/20/20 03/07/21 diltiazem HCl 120 mg 120 mg PO BID #180 tab-cap 12/20/20 03/07/21 capsule,extended release 24 hr fluticasone furoate 100 1 inh IH DAILY #60 ea 12/20/20 03/07/21 mcg-vilanterol 25 mcg/dose inhalation powder potassium chloride 10 mEq 10 meq PO BID #180 tab 12/20/20 03/07/21 tablet,extended release(part/cryst) sertraline 100 mg tablet 100 mg PO DAILY #90 tab 01/10/21 03/07/21 oxycodone 5 mg tablet 5 mg PO TID PRN #15 tab MDD 15mg 03/07/21 03/07/21 valacyclovir 1 gram tablet 1,000 mg PO TID #21 tab 03/07/21 03/07/21 Previous Rx's Medication Instructions Recorded fluticasone propionate 50 1 spray NS BID #15.8 ml 06/14/20 mcg/actuation nasal spray,suspension losartan 100 1 tab PO DAILY #90 tab-cap 06/14/20 mg-hydrochlorothiazide 25 mg tablet pantoprazole 40 mg tablet,delayed 40 mg PO DAILY #90 tab 07/16/20 release albuterol sulfate 90 mcg/actuation 2 puff INHALATION Q4H PRN #1 10/01/20 aerosol inhaler inhaler atorvastatin 40 mg tablet 40 mg PO QPM #90 tab 12/20/20 diltiazem HCl 120 mg 120 mg PO BID #180 tab-cap 12/20/20 capsule,extended release 24 hr fluticasone furoate 100 1 inh IH DAILY #60 ea 12/20/20 mcg-vilanterol 25 mcg/dose inhalation powder potassium chloride 10 mEq 10 meq PO BID #180 tab 12/20/20 tablet,extended release(part/cryst) sertraline 100 mg tablet 100 mg PO DAILY #90 tab 01/10/21 oxycodone 5 mg tablet 5 mg PO TID PRN #15 tab MDD 15mg 03/07/21 valacyclovir 1 gram tablet 1,000 mg PO TID #21 tab 03/07/21 Allergies Allergy/AdvReac Type Severity Reaction Status Date / Time budesonide Allergy Mild ITCH Verified 03/07/21 11:47 formoterol Allergy Mild ITCH Verified 03/07/21 11:47 amlodipine AdvReac Intermediate ANKLE Verified 03/07/21 11:47 SWELLING DOG DANDER Allergy Mild Other (See Uncoded 03/07/21 11:47 Comment) DUST Allergy Mild Uncoded 03/07/21 11:47 General Stated Complaint: Chest Pain ANNEMARIE: 3 Review of Systems <Gisella Cameron - Last Filed: 03/12/21 08:16> All systems reviewed & are unremarkable except as noted in HPI and below Cardiovascular Cardiovascular: Reports as per HPI, Reports chest pain, Reports chest pain at rest, Denies diaphoresis, Denies syncope, Denies irregular heart rhythm, Denies leg edema and Denies orthopnea Respiratory Respiratory: Denies chest congestion, Reports cough, Denies hemoptysis and Denies wheezing Gastrointestinal Gastrointestinal: Denies abdominal pain, Denies diarrhea, Denies nausea and Denies vomiting Neurologic Neurologic: Denies syncope Allergic/Immunologic Allergic/Immunologic: Denies wheezing PFS <Gisella Cameron - Last Filed: 03/12/21 08:16> Medical History Fracture of radius History of ectopic Inversion of nipple left Verruca She can get [id number] salicylic acid topical to apply to warts daily or every other day. Return monthly or as needed for repeat of cyotherapy. Surgical History Abdominal hysterectomy (~1976) Bilateral salpingectomy with oophorectomy (~1976) Colonoscopy - IV Sedation (12/02/12) NEGATIVE; DR. Ioana KING EGD - MAC (~2009) neg History of bilateral salpingo-oophorectomy History of colonoscopy (~05/2019) History of esophagogastroduodenoscopy , Ectopic sinus surgery (~2003) Status post operation on paranasal sinus Family History Mother , 81 Essential hypertension Heart disease Father , 84 Essential hypertension Heart disease Sister No problems noted. Brother No problems noted. Paternal Grandmother Cancer Sister No problems noted. Social History Smoking/Tobacco Use Status: Former Tobacco Use Quit Date: 05/18/70 Tobacco: How many years used: 52 Second Hand Exposure: Yes Smoking risk assessment performed?: Yes Alcohol Intake: current Alcohol Intake frequency: holidays/special occasions only Drug use: Never Substance use type: does not use Caregiver/Support person: No Household members: spouse Housing: house Communication Needs: None Do you need help understanding health information?: Never Pets and animals: No Sexually active: No What is your relationship status?: How often do you talk on the phone with friends or family?: twice per week How often do you get together with friends or relatives?: once per week How often do you attend baptism or anabaptism services?: decline to answer Do you belong to any clubs or organized social groups?: no Panel score (0-1 are the most socially isolated patients): 2 Duration: < 15 minutes/day Frequency: 1-2 times per week Berna/Zoroastrianism: Confucianist Special berna needs: No Seatbelt use: always Drive intox or ride w/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 Appears stated age. Normal body habitus. Head: Normocephalic, no trauma. Eyes: Pupils PERRLA, Red reflex noted, EOM's intact. Eyelids symmetrical without lesions, discharge, or swelling. Chest: RRR, Normal S1, S2, distal pulses intact. Resp: Lungs clear to auscultation bilaterally, no wheezes, rales, or rhonchi. Abdomen: Soft, nondistended nontender palpation all 4 quadrants. Musculoskeletal: Normal gait, 5/5 strength to all four extremities. No bilateral lower extremity swelling noted. Skin: No suspicious rashes or lesions. Capillary refill less than 2 sec. Neurologic: Cranial nerves II-XII intact. Alert and oriented x 3. Hematologic/Lymphatic: No ecchymosis, no lymphadenopathy. Course <Gisella Cameron - [facility] Filed: 03/12/21 08:16> Vital Signs Vital signs: Vital Signs Temperature 36.8 C 03/05/21 13:33 Pulse 80 03/05/21 13:33 Respiratory Rate 18 03/05/21 13:33 Blood Pressure 166/48 H 03/05/21 13:33 Pulse Oximetry 98 03/05/21 13:33 Temperature 36.8 C 03/05/21 13:33 Temperature Source Temporal Artery Scan 03/05/21 13:33 Pulse 69 03/05/21 14:36 Pulse 72 03/05/21 14:36 Respiratory Rate 19 03/05/21 14:36 Respiratory Effort Non-Labored 03/05/21 14:03 Respiratory Depth Normal 03/05/21 14:03 Respiratory Pattern Normal 03/05/21 14:03 Blood Pressure 138/50 L 03/05/21 14:36 Blood Pressure Mean 72 03/05/21 14:36 Blood Pressure Position Sitting 03/05/21 13:33 Pulse Oximetry 95 03/05/21 14:36 Oxygen Delivery Method Room Air 03/05/21 13:33 Oxygen Flow Rate 0 03/05/21 13:33 Lab/Test Results Lab/Test Results: Laboratory Tests Range/Units 03/05/21 03/05/21 03/05/21 13:50 13:50 13:50 WBC (4.4-10.8) 10^3/uL 10.42 RBC (3.93-5.22) 10^6/uL 4.70 Hgb (11.2-15.7) g/dL 13.7 Hct (36.0-46.0) % 41.5 MCV (80-95) fL 88.3 MCH (27.0-33.0) pg 29.1 MCHC (32.0-36.0) % 33.0 RDW (11.7-14.6) % 13.8 Plt Count (130-400) 10^3/uL 322 MPV (8.0-11.0) fL 10.1 Immature Gran % 0.2 Neutrophils % 63.8 Lymphocytes % 23.4 Monocytes % 9.5 Eosinophils % 2.7 Basophils % 0.4 Nucleated RBC % % 0 Absolute Neutrophils (1.2-6.7) 10^3/uL 6.65 Absolute Lymphocytes (1.2-3.4) 10^3/uL 2.44 Absolute Monocytes (0.1-0.8) 10^3/uL 0.99 H Absolute Eosinophils (0.0-0.7) 10^3/uL 0.28 Absolute Basophils (0.0-0.2) 10^3/uL 0.04 Sodium (136-145) mmol/L 139 Potassium (3.5-5.1) mmol/L 3.5 Chloride (98-107) mmol/L 100 Carbon Dioxide (21.0-32.0) mmol/L 28.3 Anion Gap (3-11) mmol/L 10.7 BUN (7-18) mg/dL 18 Creatinine (0.55-1.02) mg/dL 0.9 Estimated GFR/1.73 m2 (mL/min/1.73m2) >= 60.00 Glucose (74-106) mg/dL 124 H Calcium (8.5-10.1) mg/dL 9.4 Magnesium (1.8-2.4) mg/dL 2.1 Total Bilirubin (0.2-1.0) mg/dL 0.6 AST (15-37) U/L 33 ALT (14-59) U/L 49 Alkaline Phosphatase (46-116) U/L 91 Troponin I (<0.06) ng/mL < 0.05 NT-Pro-B Natriuret Pep (<300) pg/mL 109 Total Protein (6.4-8.2) g/dL 8.1 Albumin (3.4-5.0) g/dL 4.4 Sign Out <Gisella Cameron - Last Filed: 03/12/21 08:16> Sign Out Data: Sign Out Comment: Pending serial troponin, dispo, outpatient stress test and Cardiology referral. Last updated by Gisella Cameron at 03/05/21 16:11 PAWSS <Gisella Cameron - Last Filed: 03/12/21 08:16> Have you Been Recently Intoxicated or Drunk Within the Last 30 days?: No Have you Ever Experienced Previous Episodes of Alcohol Withdrawal?: No Have you ever Experienced Withdrawal Seizures?: No Have you ever Experienced Delirium Tremens(DT)s?: No Have you ever undergone Alcohol Rehabilitation Treatment (i.e, inpt ot outpatient treatment programs)?: No Have you ever Experienced Blackouts?: No Have you ever Combined Alcohol with other Downers within the last 90 days?: No Have you ever Combined Alcohol with any other Substance of Abuse during the last 90 days?: No Positive Blood Alcohol level on Presentation? [PCS.BAL]: No Evidence of Increased Autonomic Activity (i.e. HR>120, tremor, sweating, agitation, nausea)?: No Result: 0
[2021-03-05] MEDS: nitroGLYcerin 0.4 MG TAB SL ×3 (15:01→23:46)
[2021-03-05] MEDS: Aspirin 81 MG CHEW 324 MG CH (15:01)
[2021-03-05 17:18] LABS: Troponin I < 0.05 ng/mL (<0.06)
[2021-03-05] MEDS: Enoxaparin 40 MG/0.4 ML SYR SC (18:40)
--- NOTE | 2021-03-05 19:34 | HPE_ITS ---
Date of service: 03/05/21 Time of Service: 19:34 Assessment and Plan Assessment and plan (1) Atypical chest pain: Status: Acute Assessment and plan: cycle troponin I levels, if third set is negative the n plan for stress MPI tomorrow and echocardiogram, assuming we have cardiology available and stress tests are being done tomorrow. Otherwise if she remains pain free w/ normal EKG and troponin levles then plan for outpatient stress test later in the week. The atypicality of her CP is that this occurred after doing push ups and that it lasted for 2 almost 3 days w/ no waxing or waning. The fact that it got better after the NTG does not prove coronary ischmia and still may be d/t GERD/spasm. However, given her age and comorbidities, she should have a stress test. (2) Hyperlipidemia: Status: Acute Assessment and plan: cont. her home dose of atorvastatin. Last lipid profile was checked on 01/01/2021 and was well controlled (LDL 61, HDL 77, TG 70). Qualifiers: Hyperlipidemia type: unspecified Qualified Code(s): E78.5 - Hyperlipidemia, unspecified (3) Essential hypertension: Status: Chronic (4) GERD (gastroesophageal reflux disease): Status: Chronic Assessment and plan: cont. home protonix. if stress MPI is negative then consider outpatient follow up EGD Qualifiers: Esophagitis presence: esophagitis presence not specified Qualified Code(s): K21.9 - Gastro-esophageal reflux disease without esophagitis (5) Impaired glucose metabolism: Status: Acute Assessment and plan: her A1c does not quite fit criteria for DM. Will monitor her glucose bid while inpatient. She is currently on no diabetic meds. I have elected to not institute insulin sliding scale but rather just watch her glucose bid. History of Present Illness History of Present Illness Chief Complaint: chest pain Narrative: 70 yr old female nonsmoker w/ PMH of type 2 DM (dx this summer, not on meds; A1c 6.4% as of 01/01), HTN, HLD, GERD, osteoporosis who has had substernal chest discomfort since Thursday (2d ago) since doing some push ups against the kitchen counter. She attributed it to musculoskeletal pains but this did not improve w/ Advil. She went to the [facility] where an EKG was done and showed no ischemia or injury but she was sent to the ER for further evaluation. Repeat EKG there showed NSR w/ repolarization ST changes (similar to the one done in [facility]). Troponin I x 2 sets were normal @ <0.05. CXR showed no acute abnormalities. She was given NTG 0.4 mg x 2 which gradually alleviated her symptoms. She denies any acute exertional dyspnea but states that d/t her asthma she gets dyspnea w/ significant exertion and this has been going on for over a year. She denies any fever, cough, sputum, rigors, COVID-19 exposure. She is fully vaccinated w/ 2 dose mRNA vaccine last July. She is currently free of any chest discomfort or dyspnea. She has GERD but no recent flare ups of dyspepsia and her sx are controlled w/ Protonix. She can not reproduce her CP w/ movement of her upper body/arms and chest wall was not reproducible. She is admitted for observation on telemetry and for possible GXT stress MPI in the morning. Review of Systems All systems reviewed & are unremarkable except as noted in HPI and below PFSH Medical History Fracture of radius History of ectopic Inversion of nipple left Verruca She can get glxh-yxl-zafzhcj salicylic acid topical to apply to warts daily or every other day. Return monthly or as needed for repeat of cyotherapy. Surgical History Abdominal hysterectomy (~1976) Bilateral salpingectomy with oophorectomy (~1976) Colonoscopy - IV Sedation (12/02/12) NEGATIVE; DR. Ioana KING EGD - MAC (~2009) neg History of bilateral salpingo-oophorectomy History of colonoscopy (~05/2019) History of esophagogastroduodenoscopy , Ectopic sinus surgery (~2003) Status post operation on paranasal sinus Family History Mother , 81 Essential hypertension Heart disease Father , 84 Essential hypertension Heart disease Sister No problems noted. Brother No problems noted. Paternal Grandmother Cancer Sister No problems noted. Social History Smoking/Tobacco Use Status: Former Tobacco Use Quit Date: 05/18/70 Tobacco: How many years used: 52 Second Hand Exposure: Yes Smoking risk assessment performed?: Yes Alcohol Intake: current Alcohol Intake frequency: holidays/special occasions only Drug use: Never Substance use type: does not use Caregiver/Support person: No Household members: spouse Housing: house Communication Needs: None Do you need help understanding health information?: Never Pets and animals: No Sexually active: No What is your relationship status?: How often do you talk on the phone with friends or family?: twice per week How often do you get together with friends or relatives?: once per week How often do you attend congregational or cheondoism services?: decline to answer Do you belong to any clubs or organized social groups?: no Panel score (0-1 are the most socially isolated patients): 2 Duration: < 15 minutes/day Frequency: 1-2 times per week Berna/Congregational: Taoist Special berna needs: No Seatbelt use: always 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 Do you feel safe at home: Yes Do you feel safe in your relationship?: Yes Meds Allergies and Home Medications Allergies Allergy/AdvReac Type Severity Reaction Status Date / Time budesonide Allergy Mild ITCH Verified 03/05/21 13:35 formoterol Allergy Mild ITCH Verified 03/05/21 13:35 amlodipine AdvReac Intermediate ANKLE Verified 03/05/21 13:35 SWELLING DOG DANDER Allergy Mild Other (See Uncoded 03/05/21 13:35 Comment) DUST Allergy Mild Uncoded 03/05/21 13:35 Home Medications Medication Instructions Recorded Confirmed Type calcium carbonate [Calcium 600] 600 mg PO DAILY 10/18/12 03/05/21 History cholecalciferol (vitamin D3) 50 2,000 unit PO DAILY 12/08/18 03/05/21 History mcg (2,000 unit) capsule multivitamin 1 cap PO DAILY 12/08/18 03/05/21 History fluticasone propionate 50 1 spray NS BID #15.8 ml 06/14/20 03/05/21 Rx mcg/actuation nasal spray,suspension losartan 100 1 tab PO DAILY #90 tab-cap 06/14/20 03/05/21 Rx mg-hydrochlorothiazide 25 mg tablet pantoprazole 40 mg tablet,delayed 40 mg PO DAILY #90 tab 07/16/20 03/05/21 Rx release albuterol sulfate 90 mcg/actuation 2 puff INHALATION Q4H PRN #1 10/01/20 03/05/21 Rx aerosol inhaler inhaler atorvastatin 40 mg tablet 40 mg PO QPM #90 tab 12/20/20 03/05/21 Rx diltiazem HCl 120 mg 120 mg PO BID #180 tab-cap 12/20/20 03/05/21 Rx capsule,extended release 24 hr fluticasone furoate 100 1 inh IH DAILY #60 ea 12/20/20 03/05/21 Rx mcg-vilanterol 25 mcg/dose inhalation powder potassium chloride 10 mEq 10 meq PO BID #180 tab 12/20/20 03/05/21 Rx tablet,extended release(part/cryst) sertraline 100 mg tablet 100 mg PO DAILY #90 tab 01/10/21 03/05/21 Rx Exam Narrative Exam Narrative: White female lying in bed in semi-Montalvo position, alert and oriented x 3 in no distress or discomfort HEENT: unremarkable Neck: supple, no JVD, no adenopathy, no bruits; normal carotid pulses Lungs: clear; no rhonchi or wheezing and no rales Heart: RRR, w/ soft systolic ejection murmur 1/6 over aortic outflow tract, no clicks, rubs or gallops Abdomen: soft, nontender, no bruits, no masses Legs: no calf swelling or tenderness, normal pedal pulses Neuro: grossly normal; no focal motor or sensory or CN deficits Results Imaging Chest x-ray: report reviewed and image reviewed EKG: report reviewed and image reviewed Labs Result diagrams: 03/05/21 13:50 03/05/21 13:50 Labs: Laboratory Results - last 24 hr 03/05/21 03/05/21 03/05/21 13:50 13:50 13:50 WBC 10.42 RBC 4.70 Hgb 13.7 Hct 41.5 MCV 88.3 MCH 29.1 MCHC 33.0 RDW 13.8 Plt Count 322 MPV 10.1 Immature Gran % 0.2 Neutrophils % 63.8 Lymphocytes % 23.4 Monocytes % 9.5 Eosinophils % 2.7 Basophils % 0.4 Nucleated RBC % 0 Absolute Neutrophils 6.65 Absolute Lymphocytes 2.44 Absolute Monocytes 0.99 H Absolute Eosinophils 0.28 Absolute Basophils 0.04 Sodium 139 Potassium 3.5 Chloride 100 Carbon Dioxide 28.3 Anion Gap 10.7 BUN 18 Creatinine 0.9 Estimated GFR/1.73 m2 >= 60.00 Glucose 124 H Calcium 9.4 Magnesium 2.1 Total Bilirubin 0.6 AST 33 ALT 49 Alkaline Phosphatase 91 Troponin I < 0.05 NT-Pro-B Natriuret Pep 109 Total Protein 8.1 Albumin 4.4 03/05/21 16:56 WBC RBC Hgb Hct MCV MCH MCHC RDW Plt Count MPV Immature Gran % Neutrophils % Lymphocytes % Monocytes % Eosinophils % Basophils % Nucleated RBC % Absolute Neutrophils Absolute Lymphocytes Absolute Monocytes Absolute Eosinophils Absolute Basophils Sodium Potassium Chloride Carbon Dioxide Anion Gap BUN Creatinine Estimated GFR/1.73 m2 Glucose Calcium Magnesium Total Bilirubin AST ALT Alkaline Phosphatase Troponin I < 0.05 NT-Pro-B Natriuret Pep Total Protein Albumin Last Vital Signs Temp 36.3 C L 03/05/21 18:17 Pulse 73 03/05/21 18:17 Resp 18 03/05/21 18:17 BP 185/80 H 03/05/21 18:17 Pulse Ox 97 03/05/21 18:17 PAWSS Have you Been Recently Intoxicated or Drunk Within the Last 30 days?: No Have you Ever Experienced Previous Episodes of Alcohol Withdrawal?: No Have you ever Experienced Withdrawal Seizures?: No Have you ever Experienced Delirium Tremens(DT)s?: No Have you ever undergone Alcohol Rehabilitation Treatment (i.e, inpt ot outpatient treatment programs)?: No Have you ever Experienced Blackouts?: No Have you ever Combined Alcohol with other Downers within the last 90 days?: No Have you ever Combined Alcohol with any other Substance of Abuse during the last 90 days?: No Positive Blood Alcohol level on Presentation? [PCS.BAL]: No Evidence of Increased Autonomic Activity (i.e. HR>120, tremor, sweating, agitation, nausea)?: No Result: 0
[2021-03-05] MEDS: Atorvastatin 40 MG TAB PO (20:52)
[2021-03-05] MEDS: dilTIAZem CD 120 MG CAPCR PO (20:52)
[2021-03-05] MEDS: Potassium Chloride 10 MEQ TABCR PO (20:52)
[2021-03-05 20:53] LABS: Troponin I < 0.05 ng/mL (<0.06)
--- NOTE | 2021-03-05 23:45 | RT.EKG_ITS ---
APPROVED REPORT Exam: Resting ECG Reason for Exam: cp Patient Location: I HR:84 bpm ECG Measurements Heart Rate 84 AXIS TN 175 P 39 QRSd 74 QRS 55 QT 379 T 67 QTc 448 Conclusion Sinus rhythm...normal P axis, V-rate 60- 99
[2021-03-05] MEDS: Normal Saline Flush 10 ML SYR IVP (23:46)
[2021-03-05] MEDS: Acetaminophen 325 MG TAB PO (23:47)
[2021-03-06] VITALS (10 sets, daily range): BP systolic 131–161; BP diastolic 64–81; PULSE 67–94; RESP 12–19; TEMP 35.4–37.2; O2SAT 94–97
[2021-03-06] MEDS: Mylanta Suspension 30 ML CUP PO (00:08)
[2021-03-06] MEDS: nitroGLYcerin 0.4 MG TAB SL ×5 (00:08→09:08)
[2021-03-06 00:19] LABS: COVID-19 PCR Negative (Negative); Source Nasal/Nares
[2021-03-06 00:51] LABS: Troponin I < 0.05 ng/mL (<0.06)
[2021-03-06 07:45] LABS: Troponin I < 0.05 ng/mL (<0.06)
--- NOTE | 2021-03-06 08:36 | NUR.NOTE ---
Nursing Note: 0800: pt reports to RN that she has pressure straight through to my back. further discussion reveals that pt has pain between shoulder blades at this time, pt denies numbness or tingling, no facial discomfort, denies pain but refers to discomfort as pressure. reported information to CC Christine Quevedo, RN
[2021-03-06] MEDS: Calcium Carbonate 1.5 GM TAB PO (08:49)
[2021-03-06] MEDS: Multivitamin TAB 1 TAB PO (08:49)
[2021-03-06] MEDS: Cholecalciferol (Vitamin D3) 1,000 UNIT TAB 2000 UNITS PO (08:50)
[2021-03-06] MEDS: Sertraline 50 MG TAB 100 MG PO (08:50)
[2021-03-06] MEDS: Pantoprazole 40 MG TABCR PO (08:50)
[2021-03-06] MEDS: Losartan 50 MG TAB 100 MG PO (08:50)
[2021-03-06] MEDS: Potassium Chloride 10 MEQ TABCR PO (08:50)
[2021-03-06] MEDS: Fluticasone NASAL SPRAY 16 GM BTL NS (08:51)
[2021-03-06] MEDS: hydroCHLOROthiazide 25 MG TAB PO (08:51)
[2021-03-06] MEDS: dilTIAZem CD 120 MG CAPCR PO (08:51)
[2021-03-06] MEDS: Normal Saline Flush 10 ML SYR IVP ×2 (08:52→12:20)
--- NOTE | 2021-03-06 10:38 | DSE_ITS ---
Date of service: 03/06/21 Time of Service: 10:38 DS: Diagnosis Discharge Diagnosis (1) Atypical chest pain: Status: Acute (2) Hyperlipidemia: Status: Acute (3) Essential hypertension: Status: Chronic (4) GERD (gastroesophageal reflux disease): Status: Chronic (5) Impaired glucose metabolism: Status: Acute Discharge Plan Disposition Patient Disposition: HOME Condition: Stable Discharge Details Reason For Visit: Chest Pain Admit Date/Time: 03/05/21 17:28 Admit Provider: Rex Martinez Attending Provider: Rex Martinez Primary Care Provider: [facility] Course Hospital Course: This is a 70 yr old female nonsmoker w/ PMH of type 2 DM (dx this summer, not on meds; A1c 6.4% as of 01/01), HTN, HLD, GERD, osteoporosis who has had substernal chest discomfort since Thursday (2d ago) since doing some push ups against the kitchen counter. She attributed it to musculoskeletal pains but this did not improve w/ Advil. She went to the [facility] where an EKG was done and showed no ischemia or injury but she was sent to the ER for further evaluation. Repeat EKG there showed NSR w/ repolarization ST changes (similar to the one done in [facility]). Troponin I x 2 sets were normal @ <0.05. CXR showed no acute abnormalities. she was admitted overnight on telemetry for possible stress testing which was not available. She remained in NSR with no dysrhythmias, additional troponins negative. Her pain is fleeting, she denies any alleviating or aggravating factors. Her echocardiogram was unremarkable with no wall motion abnormalities. She will be scheduled for an outpatient stress test, advised to return for new or worsening symptoms. discussed with Dr Acharya Home Meds and New Rx's Prescriptions: Continued atorvastatin 40 mg tablet 40 mg PO QPM Qty: 90 RF: 4 diltiazem HCl [Cardizem CD] 120 mg capsule,extended release 24hr 120 mg PO BID Qty: 180 RF: 3 Breo Ellipta 100-25 mcg/dose blister with device 1 inh IH DAILY Qty: 60 RF: 11 potassium chloride 10 mEq tablet,ER particles/crystals 10 meq PO BID Qty: 180 RF: 4 losartan-hydrochlorothiazide [Hyzaar] 100-25 mg tablet 1 tab PO DAILY Qty: 90 RF: 3 fluticasone propionate 50 mcg/actuation spray,suspension 1 spray NS BID Qty: 15.8 RF: 4 cholecalciferol (vitamin D3) 2,000 unit capsule 2,000 unit PO DAILY RF: 0 multivitamin Capsule 1 cap PO DAILY RF: 0 calcium carbonate [Calcium 600] 600 MG tablet 600 mg PO DAILY RF: 0 pantoprazole [Protonix] 40 mg tablet,delayed release (DR/EC) 40 mg PO DAILY Qty: 90 RF: 3 albuterol sulfate 90 mcg/actuation HFA aerosol inhaler 2 puff Inhalation Q4H PRN Qty: 1 RF: 5 sertraline 100 mg tablet 100 mg PO DAILY Qty: 90 RF: 4 Discharge Instructions Instructions: Chest Pain (DC) Stand Alone Forms: Nursing Discharge Form Referrals: Promise Lucio NP [Primary Care Provider] - 03/19/21 4:20 pm Activity:: Activity as Tolerated Equipment/Supplies:: No Equipment Needed Diet:: As Tolerated Discharge Orders Discharge Orders: Discharge Order (Routine); Ordered 03/06/21 Ordered By: Jennifer Jaimes Other Ambulatory Orders: NM MPI rest & stress grp (Routine) Location: None Selected Ordered By: Jennifer Jaimes Discharge Data Discharge Date/Time-TO BE ENTERED AT DEPARTURE: 03/06/21 13:24 DS: Summary Time Spent with Patient providing and/or coordinating discharge services: Less than 30 minutes Status at Discharge Functional status at discharge: independent ambulation Overall status at discharge: patient is back to baseline Mental Status: mental status grossly normal Speech and Movement: speech and movement normal Mood: congruent mood Affect: normal affect Exam Const General: cooperative, healthy appearing, comfortable and no acute distress Nutritional Appearance: overweight Orientation: alert, awake and oriented x3 HENHI Head: normal to inspection, normocephalic and atraumatic Mouth: oral mucosae normal Resp Effort & Inspection: normal respiratory effort Auscultation: clear to auscultation bilaterally Cardio Rate: regular rate Rhythm: regular rhythm GI Inspection: normal to inspection Palpation: soft Auscultation: normal bowel sounds Skin General skin exam: no rashes or lesions noted Neuro General: patient alert, patient awake, patient oriented x3 and no focal motor deficits Extrem General: normal to inspection, full ROM and no pedal edema Psych Mental Status: mental status grossly normal Speech and Movement: speech and movement normal Mood: congruent mood Affect: normal affect DS: Data Vitals/I&O Vitals and I&O: Vital Signs Temperature 36.6 C 03/06/21 07:51 Temperature Source Temporal Artery Scan 03/06/21 07:51 Pulse 90 03/06/21 09:11 Pulse Rhythm Regular 03/05/21 23:50 Pulse 72 03/05/21 17:40 Respiratory Rate 19 03/06/21 09:11 Respiratory Effort Non-Labored 03/05/21 23:50 Respiratory Depth Normal 03/05/21 23:50 Respiratory Pattern Normal 03/05/21 23:50 Blood Pressure 143/64 H 03/06/21 09:11 Blood Pressure Mean 83 03/05/21 17:31 Blood Pressure Position Sitting 03/05/21 13:33 Pulse Oximetry 96 03/06/21 09:11 Oxygen Delivery Method Nasal Cannula 03/06/21 09:11 Oxygen Flow Rate 2 03/06/21 09:11 Pain Level 5 03/06/21 09:11 Comment 03/06/21 09:00 Intake & Output 03/05/21 03/05/21 03/06/21 11:59 23:59 11:59 Intake Total 250 / 250 Output Total 1050 / 1050 Balance -800 / -800 Weight 74.843 kg Intake: Oral 250 / 250 Output: Urine 1050 / 1050 Other: Urine Color Yellow Urine Appearance Clear Urine Odor Normal Voiding Methods Toilet Data Completed and Pending Labs on day of discharge: Labs from last 24 hours 03/06/21 03/05/21 03/05/21 06:15 21:45 20:25 WBC RBC Hgb Hct MCV MCH MCHC RDW Plt Count MPV Immature Gran % Neutrophils % Lymphocytes % Monocytes % Eosinophils % Basophils % Nucleated RBC % Absolute Neutrophils Absolute Lymphocytes Absolute Monocytes Absolute Eosinophils Absolute Basophils Sodium Potassium Chloride Carbon Dioxide Anion Gap BUN Creatinine Estimated GFR/1.73 m2 Glucose Calcium Magnesium Total Bilirubin AST ALT Alkaline Phosphatase Troponin I < 0.05 < 0.05 NT-Pro-B Natriuret Pep Total Protein Albumin COVID-19 Source Nasal/Nares SARS-CoV-2 (PCR) Negative 03/05/21 03/05/21 03/05/21 16:56 13:50 13:50 WBC 10.42 RBC 4.70 Hgb 13.7 Hct 41.5 MCV 88.3 MCH 29.1 MCHC 33.0 RDW 13.8 Plt Count 322 MPV 10.1 Immature Gran % 0.2 Neutrophils % 63.8 Lymphocytes % 23.4 Monocytes % 9.5 Eosinophils % 2.7 Basophils % 0.4 Nucleated RBC % 0 Absolute Neutrophils 6.65 Absolute Lymphocytes 2.44 Absolute Monocytes 0.99 H Absolute Eosinophils 0.28 Absolute Basophils 0.04 Sodium 139 Potassium 3.5 Chloride 100 Carbon Dioxide 28.3 Anion Gap 10.7 BUN 18 Creatinine 0.9 Estimated GFR/1.73 m2 >= 60.00 Glucose 124 H Calcium 9.4 Magnesium Total Bilirubin 0.6 AST 33 ALT 49 Alkaline Phosphatase 91 Troponin I < 0.05 < 0.05 NT-Pro-B Natriuret Pep Total Protein 8.1 Albumin 4.4 COVID-19 Source SARS-CoV-2 (PCR) 03/05/21 03/05/21 13:50 00:20 WBC RBC Hgb Hct MCV MCH MCHC RDW Plt Count MPV Immature Gran % Neutrophils % Lymphocytes % Monocytes % Eosinophils % Basophils % Nucleated RBC % Absolute Neutrophils Absolute Lymphocytes Absolute Monocytes Absolute Eosinophils Absolute Basophils Sodium Potassium Chloride Carbon Dioxide Anion Gap BUN Creatinine Estimated GFR/1.73 m2 Glucose Calcium Magnesium 2.1 Total Bilirubin AST ALT Alkaline Phosphatase Troponin I < 0.05 NT-Pro-B Natriuret Pep 109 Total Protein Albumin COVID-19 Source SARS-CoV-2 (PCR) [facility] Medical History Fracture of radius History of ectopic Inversion of nipple left Verruca She can get myjr-pus-poodhde salicylic acid topical to apply to warts daily or every other day. Return monthly or as needed for repeat of cyotherapy. Surgical History Abdominal hysterectomy (~1976) Bilateral salpingectomy with oophorectomy (~1976) Colonoscopy - IV Sedation (12/02/12) NEGATIVE; DR. Ioana KING EGD - MAC (~2009) neg History of bilateral salpingo-oophorectomy History of colonoscopy (~05/2019) History of esophagogastroduodenoscopy , Ectopic sinus surgery (~2003) Status post operation on paranasal sinus Family History Mother , 81 Essential hypertension Heart disease Father , 84 Essential hypertension Heart disease Sister No problems noted. Brother No problems noted. Paternal Grandmother Cancer Sister No problems noted. Social History Smoking/Tobacco Use Status: Former Tobacco Use Quit Date: 05/18/70 Tobacco: How many years used: 52 Second Hand Exposure: Yes Smoking risk assessment performed?: Yes Alcohol Intake: current Alcohol Intake frequency: holidays/special occasions only Drug use: Never Substance use type: does not use Caregiver/Support person: No Household members: spouse Housing: house Communication Needs: None Do you need help understanding health information?: Never Pets and animals: No Sexually active: No What is your relationship status?: How often do you talk on the phone with friends or family?: twice per week How often do you get together with friends or relatives?: once per week How often do you attend scientology or hindu services?: decline to answer Do you belong to any clubs or organized social groups?: no Panel score (0-1 are the most socially isolated patients): 2 Duration: < 15 minutes/day Frequency: 1-2 times per week Berna/Scientology: Yazidism Special berna needs: No Seatbelt use: always 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
[2021-03-06] MEDS: Ketorolac 15 MG/ML VIAL IVP (12:19)
--- NOTE | 2021-03-06 18:14 | PDOC.CMPRO ---
- If Service Date Differs Date of service: 03/06/21 Time of Service: 18:14 Care Management Progress Note Carisa was preparing for discharge when CM met with her. She shared that she is independent at baseline and does not receive any community services. Carisa did not feel that she would need any additional supports at home. She lives with her in [facility] and has 3 children. She described her family as close and very supportive. Carisa will follow up with her community providers and plan of care and will have an outpatient stress test.
== END 2021-03-06 13:24 | disposition home or self-care (01) ==
LOC: ER 13:36 → MS 18:04
PROVIDERS: Registered Nurse Emergency; Admitting Provider Internal Medicine; Emergency Provider Physician Assistant; PCP Nurse Practitioner; Visit Provider Internal Medicine
DX: R07.89 Other chest pain (principal); E78.5 Hyperlipidemia, unspecified; I10 Essential (primary) hypertension; K21.9 Gastro-esophageal reflux disease without esophagitis; J45.909 Unspecified asthma, uncomplicated; M81.0 Age-related osteoporosis without current pathological fracture; R05.9 Cough, unspecified; Z87.891 Personal history of nicotine dependence; Z20.822 Contact with and (suspected) exposure to COVID-19; R73.09 Other abnormal glucose
CPT/HCPCS: 36415; 80053; 87635; 90662; 93005; 99285; J1650; 71046; 83735; 83880; 84484; 85025; 93010; 93306; 99217; 99219; G0378; J1885

== ENCOUNTER 2021-04-15 01:00 | Outpatient (CLI) | payer MEDICARE, BC, SELFPAY ==
--- NOTE | 2021-04-15 08:45 | DI.NM_ITS ---
APPROVED REPORT Exam: Exercise Treadmill Patient Location: Out-Patient Room/Bed: Stress Nurse: Dior Duron RN Ordering Provider:SAIRA TEMPLE, Contact Number: BMI: 30.98 Baseline Rhythm: Sinus Rhythm Indications: CHEST PAIN Medical History Medical History: Asthma, GERD, HTN, DM, Atypical chest pain Cardiac Medications: Losartan, Atorvastatin, Pantroprazole, Potassium chloride, Diltiazem, Allergies: Amlodipine, Budesonide, Formoterol Cardiac Risk Factors: HTN, Hyperlipidemia, DM, FHX of CAD, Smoking (former) Previous Cardiac Procedures: None Pretest Chest Pain Characteristics: 2/10 constant right lower chest pain described as burning, radiat ing towards back Exercise History: Sedentary Physical Disabilities: None Lung Sounds: Clear to auscultation Heart Sounds: Regular Stress Test Details Test: Exercise stress testing was performed using a Rafael protocol. Nuclear Acquisition: Rest Tc-99m/Stress Tc-99m 1 day Rest Isotope: Tc-99m Sestamibi. Dose: 10.5 Date: 04/15/2021 Injection Time: 0900 Stress Isotope: Tc-99m Sestamibi. Dose: 33 Date: 04/15/2021 Injection Time: 1033 HR Resting HR Supine: 74 bpm Max Heart Rate (APMHR): 149.457203 bpm Resting HR Standin bpm Target HR (85% APMHR): 126.024956 bpm Max HR Achieved: 141 bpm % of APMHR: 94.63 Recovery HR: 83 bpm HR response to stress: Normal HR response to stress Comment: Diltiazem not held for test, last taken this AM. BP Resting BP Supine: 160/82 mmHg Resting BP Standin/82 mmHg Max BP: 214/72 mmHg Recovery BP: 162/84 mmHg BP response to stress: Normal blood pressure response to stress. Comment: Hypertensive at baseline. ECG Resting ECG: Sinus Rhythm Ectopy: None Stress ECG: Sinus Tachycardia ST Change: Horizontal/Downsloping ST depression Lead(s): inferolateral leads Stage: [address] Deviation: 1.5 mm Arrhythmia: Rare PVC Recovery ECG: Sinus Rhythm, Recovery ST Change: Horizontal ST depression Lead(s): inferior leads Recovery ST Deviation: 0.5-1 mm Recovery Arrhythmia: None Comment: ST segments returning to baseline by minute 8 of recovery. Flipped T wave in lead I noted at 6 min recovery. Clinical Reason for Termination: Fatigue, Dyspnea Stress Symptoms: Dyspnea, General Fatigue Exercise duration: 05 min32 sec Highest Stage Reached: Stage 2: 2.5 mph at 12% grade. Exercise capacity: 7.05 METs Light Treadmill Score: 5 Rate Pressure Product: [id number] Stress ECG Conclusion 1. Resting electrocardiogram showed voltage for left ventricular hypertrophy 2. Patient exercised on the Rafael protocol and completed a workload of 7 METS limited by shortness of breath and fatigue 3. Resting hypertension. Normal hemodynamic response to exercise. Peak heart rate achieved was 94% of predicted for age 4. Electrocardiographically the test was consistent with myocardial ischemia 5. There were no significant dysrhythmias Light Treadmill Score is 5 which is Low risk. Stress Test Summary STAGE Time (mins) Speed (mph) Grade (%) HR BP SYMPTOMS METS Supine 74 160/82 Standing 88 164/82 1 3 1.7 10 124 182/82 4.6 2 6 2.5 12 140 188/90 7 1 min recovery 119 212/82 3 min recovery 98 214/72 6 min recovery 88 182/78 9 min recovery 83 162/84 Constant chest burning present during exercise and recovery period, unchanged from baseline. MPI Conclusion Normal myocardial perfusion without evidence of ischemia or prior infarction EF 75%, normal wall motion Radiologist Interpretation Radiologist Interpretation by: Gumaro Mcdonlad MD Interpretation Date/Time: 04/16/2021 15:49:09
== END 2021-04-15 01:20 ==
PROVIDERS: PCP Nurse Practitioner; Visit Provider Nurse Practitioner Acute Care
DX: R07.9 Chest pain, unspecified (principal); I25.5 Ischemic cardiomyopathy; E78.5 Hyperlipidemia, unspecified; E11.9 Type 2 diabetes mellitus without complications; Z82.49 Family history of ischemic heart disease and other diseases of the circulatory system; Z87.891 Personal history of nicotine dependence
CPT/HCPCS: 78452; 93016; 93018; 93017

== ENCOUNTER 2021-05-23 12:54 | Outpatient (CLI) | payer MEDICARE, BC, SELFPAY ==
--- NOTE | 2021-05-23 13:00 | RT.EKG_ITS ---
APPROVED REPORT Exam: Resting ECG Reason for Exam: MENDY Aviles Needed Patient Location: O HR:101 bpm ECG Measurements Heart Rate 101 AXIS MN 163 P 73 QRSd 74 QRS 67 QT 342 T 87 QTc 444 Conclusion Sinus tachycardia...rate> 99 Probable left atrial enlargement...P >50mS, <-0.10mV V1 Poor R wave progression
== END 2021-05-23 12:55 | disposition home or self-care (01) ==
LOC: DI.CARD 13:10
PROVIDERS: PCP Nurse Practitioner; Referring Provider Nurse Practitioner; Visit Provider Internal Medicine Cardiovascular Disease
DX: R94.39 Abnormal result of other cardiovascular function study (principal)
CPT/HCPCS: 93010

== ENCOUNTER → 2021-05-23 12:54 | Outpatient (BNVA) | payer MEDICARE, BC, SELFPAY | PROVIDERS: PCP Nurse Practitioner; Referring Provider Nurse Practitioner; Visit Provider Internal Medicine Cardiovascular Disease | DX: B02.29 Other postherpetic nervous system involvement (principal); R07.89 Other chest pain; I10 Essential (primary) hypertension; J45.909 Unspecified asthma, uncomplicated | CPT/HCPCS: 93005; 99203; 99214 ==

== ENCOUNTER 2021-12-27 01:35 | Outpatient (CLI) | payer MEDICARE, BC, SELFPAY ==
[2021-12-27 12:48] LABS: Anion Gap 10.8 mmol/L (3-11); BUN 15 mg/dL (7-18); CO2 28.2 mmol/L (21.0-32.0); CREATININE 0.9 mg/dL (0.55-1.02); Calcium 9.4 mg/dL (8.5-10.1); Calculated LDL 57 mg/dL (<100); Chloride 101 mmol/L (98-107); Cholesterol 162 mg/dL (<200); Glucose 103 mg/dL (74-106); HDL Cholesterol 89 mg/dL (40-60); Potassium 3.4 mmol/L (3.5-5.1); Sodium 140 mmol/L (136-145); Triglyceride 84 mg/dL (<150)
== END 2021-12-27 01:36 | disposition home or self-care (01) ==
PROVIDERS: PCP Nurse Practitioner; Visit Provider Nurse Practitioner
DX: I10 Essential (primary) hypertension (principal)
CPT/HCPCS: 36415; 80048; 80061

== ENCOUNTER → 2022-01-16 03:53 | Outpatient (CLI) | payer MEDICARE, BC, SELFPAY ==
--- NOTE | 2022-01-16 07:45 | DI.MAMMO_ITS ---
Exam(s) MAMMO SCREENING EXAM: MAMMO SCREENING CLINICAL HISTORY: screening, Z12.39. TECHNIQUE: Bilateral full field digital CC and MLO mammographic images were obtained with 3D tomosyn thesis and utilizing computer aided detection (CAD). COMPARISON: Prior mammograms were reviewed, the most recent being December 2020. FINDINGS: There are no new spiculated masses nor malignant appearing microcalcification groups. Asymmetric density posteriorly in the left breast seen on the CC view located 8 cm in from the nipple is unchanged from all prior studies. There are no malignant-appearing microcalcification groups in this region or elsewhere in either breast. There is no significant architectural distortion nor skin thickening-retraction. IMPRESSION: No radiographic evidence of malignancy. Stable findings. BI-RADS Category 2 - Benign Findings Breast Density - Category B - Scattered areas of fibroglandular density Breast density Category C or D implies that the patient has dense breast tissue. Dense breast tissue can make it harder to find cancer on a mammogram. Dense breast tissue is also associated with an incr eased risk of breast cancer. This information about the result of the mammogram report was provided to the patient to raise their awareness. Use this report when you speak with the patient about their risks for breast cancer, which includes their family history. At that time, you may recommend additional screening tests (Ultrasoun d or MRI) as these tests may add significant information. A negative radiographic report should not delay biopsy if a dominant or clinically suspicious mass is present. Up to ten percent of cancers are not identified on mammography. A negative report may reinforce clinical impression. Adenosis and dense breasts may obscure an underlying neoplasm. False positive reports average 6 to 10%. Patient will receive a letter notifying them of these results.
== END ==
PROVIDERS: PCP Nurse Practitioner; Visit Provider Nurse Practitioner
DX: Z12.31 Encounter for screening mammogram for malignant neoplasm of breast (principal)
CPT/HCPCS: 77063; 77067

== ENCOUNTER 2022-03-26 16:02 | Emergency (ER) | payer MEDICARE, BC, SELFPAY ==
[2022-03-26 16:18] VITALS: BP 137/57; PULSE 69; RESP 20; TEMP 37; O2SAT 99
--- NOTE | 2022-03-26 16:30 | DI.RAD_ITS ---
Exam(s) XR WRIST LT COMPLETE EXAM: XR WRIST LT COMPLETE CLINICAL HISTORY: fall, wrist pain. TECHNIQUE: 2D digital imaging was performed of the left wrist. Three images were obtained. PA, obl ique and lateral views were obtained. COMPARISON: No exams were available for comparison FINDINGS: BONES: There is an acute comminuted fracture of the distal radius with dorsal angulation. On the lat eral view there does appear to be intra-articular extension identified. The fracture is also mildly impacted. There is an minimally displaced ulnar styloid process fracture. No bony destructive lesio n is seen. JOINTS: The carpal bones are normally aligned. SOFT TISSUE: There is soft tissue swelling of the wrist. IMPRESSION: Distal radial and ulnar fractures as described above. DATA REPOSITORY: RADIATION DOSE DELIVERED:
--- NOTE | 2022-03-26 16:30 | DI.RAD_ITS ---
Exam(s) XR ELBOW LT LIMITED EXAM: XR ELBOW LT LIMITED CLINICAL HISTORY: fall, arm injury. TECHNIQUE: 2D digital imaging was performed of the left elbow. Two images were obtained. AP, later al and oblique views were obtained. COMPARISON: No exams were available for comparison FINDINGS: BONES: No acute fracture is present. No bony destructive lesion is seen. JOINTS: The elbow is normally aligned. No joint effusion is seen. SOFT TISSUE: Normal. IMPRESSION: Unremarkable radiographs of the left elbow. DATA REPOSITORY: RADIATION DOSE DELIVERED:
--- NOTE | 2022-03-26 16:30 | DI.CT_ITS ---
Exam(s) CT HEAD WO EXAM: CT HEAD WO CLINICAL HISTORY: fall, head injury, vomited. TECHNIQUE: Imaging Protocol: Axial computed tomography images with coronal and sagittal reformatted images were created and reviewed COMPARISON: No exams were available for comparison FINDINGS: Ventricles and Extra axial spaces: Normal in size and morphology for the patient's age. Hemorrhage: None. Cerebral parenchyma: There are areas of decreased attenuation in the white matter consistent with chr onic microvascular ischemic disease. No evidence of an acute territorial infarct is present. Midline shift: None. Brainstem/Cerebellum: Normal. Calvarium: Normal. Visualized Paranasal sinuses/Mastoids: There is mucosal thickening in the visualized paranasal sinuse s. The mastoid air cells are clear. Surgical changes are seen in the sinuses. Soft Tissues: Unremarkable. IMPRESSION: 1. No acute intracranial process. 2. Paranasal sinusitis. RADIATION DOSE DELIVERED: 682.87mGy.cm Total DLP DATA REPOSITORY: All CT scans at this facility are submitted to the National Radiology Data Registry (NRDR) Dose Index Registry (DIR) with the [employer] (ACR). RADIATION OPTIMIZATION: All CT scans at this facility use at least one of these dose optimization te chniques: automated exposure control; mA and/or kV adjustment per patient size (includes targeted exa ms where dose is matched to clinical indication); or iterative reconstruction.
--- NOTE | 2022-03-26 16:44 | ED.GENADUL_ITS ---
Discharge Plan Disposition Patient Disposition: HOME Condition: Improving Discharge Details Chief Complaint: Orthopedic Clinical Impression: Fracture of wrist Primary Care Provider: Promise Lucio ED Provider: Sriram Jimenez Home Meds and New Rx's Prescriptions: No Action cholecalciferol (vitamin D3) 2,000 unit capsule 2,000 unit PO DAILY multivitamin Capsule 1 cap PO DAILY gabapentin 600 mg tablet extended release 24 hr 1,800 mg PO QPM PRN melatonin 10 mg tablet 10 mg PO HS PRN calcium carbonate [Calcium 600] 600 MG tablet 600 mg PO DAILY albuterol sulfate 90 mcg/actuation HFA aerosol inhaler 2 puff Inhalation Q4H PRN Qty: 1 5RF losartan-hydrochlorothiazide [Hyzaar] 100-25 mg tablet 1 tab PO DAILY Qty: 90 3RF pantoprazole [Protonix] 40 mg tablet,delayed release (DR/EC) 40 mg PO DAILY Qty: 90 3RF montelukast [Singulair] 10 mg tablet 10 mg PO DAILY Qty: 90 3RF fluticasone propionate 50 mcg/actuation spray,suspension 1 spray NS BID Qty: 15.8 4RF atorvastatin 40 mg tablet 40 mg PO QPM Qty: 90 3RF potassium chloride 10 mEq tablet,ER particles/crystals 10 meq PO BID Qty: 180 3RF diltiazem HCl [Cardizem CD] 120 mg capsule,extended release 24hr 120 mg PO BID Qty: 180 3RF fluticasone furoate-vilanterol [Breo Ellipta] 100-25 mcg/dose blister with device 1 inh IH DAILY Qty: 60 11RF sertraline 100 mg tablet 100 mg PO DAILY Qty: 90 4RF Discharge Instructions Instructions: Wrist Fracture in Adults (ED) Additional Instructions: Please follow-up closely early next week with orthopedic team. Please return to the emergency department for any worsening symptoms. Medical Decision Making 71-year-old female presents after fall from ladder was on second rung of ladder, fell backwards on the left arm also hit head, no loss of conscious episode of vomiting after event. Denies blood thinner use. Pain and mild deformity to distal left wrist, median radial and ulnar nerve distribution sensory exam intact, radial pulse intact, soft compartments, range of motion of elbow intact, slight discomfort to palpation of left elbow. Likely distal radius/ulnar fracture. Lower suspicion for elbow fracture or dislocation. Consider pain reaction with nausea and vomiting versus intracranial injury however lower suspicion for intracranial hemorrhage given history and physical. X-ray, CT head, nausea and pain medicine. Close reassessment likely splinting and home with close follow-up with orthopedic team 19: 59 comminuted distal radius and ulnar styloid fracture. Neurovascular exam intact. Placed in sugar-tong splint. Will be given close orthopedic follow-up early next week HPI General Date/Time Provider Initiated Documentation: 03/26/22 16:32 . HPI Narrative: 71-year-old female fall from second rung of a ladder fell backwards hit the back of her head, no loss of consciousness did have 1 episode of vomiting after event, pain and deformity to left wrist. Denies blood thinner use. Related Data Home Medications Medication Instructions Recorded Confirmed calcium carbonate 600 mg calcium 600 mg PO DAILY 10/18/12 02/19/22 (1,500 mg) tablet (Calcium) cholecalciferol (vitamin D3) 50 2,000 unit PO DAILY 12/08/18 02/19/22 mcg (2,000 unit) capsule multivitamin 1 cap PO DAILY 12/08/18 02/19/22 albuterol sulfate 90 mcg/actuation 2 puff inhalation Q4H PRN ##1 10/01/20 02/19/22 aerosol inhaler losartan 100 1 tab PO DAILY #90 tab-caps 05/02/21 02/19/22 mg-hydrochlorothiazide 25 mg tablet (Hyzaar) pantoprazole 40 mg tablet,delayed 40 mg PO DAILY #90 tabs 07/22/21 02/19/22 release (Protonix) gabapentin 600 mg tablet,extended 1,800 mg PO QPM PRN 10/15/21 02/19/22 release 24 hr montelukast 10 mg tablet 10 mg PO DAILY #90 tabs 11/08/21 02/19/22 (Singulair) atorvastatin 40 mg tablet 40 mg PO QPM #90 tabs 12/20/21 02/19/22 fluticasone propionate 50 1 spray NS BID #15.8 mL 12/20/21 02/19/22 mcg/actuation nasal spray,suspension diltiazem HCl 120 mg 120 mg PO BID #180 tab-caps 01/24/22 02/19/22 capsule,extended release 24 hr (Cardizem CD) potassium chloride 10 mEq 10 meq PO BID #180 tabs 01/24/22 02/19/22 tablet,extended release(part/cryst) melatonin 10 mg tablet 10 mg PO HS PRN 02/19/22 02/19/22 fluticasone furoate 100 1 inh inhalation DAILY #60 ea 03/11/22 mcg-vilanterol 25 mcg/dose inhalation powder (Breo Ellipta) sertraline 100 mg tablet 100 mg PO DAILY #90 tabs 03/17/22 Previous Rx's Medication Instructions Recorded albuterol sulfate 90 mcg/actuation 2 puff inhalation Q4H PRN ##1 10/01/20 aerosol inhaler losartan 100 1 tab PO DAILY #90 tab-caps 05/02/21 mg-hydrochlorothiazide 25 mg tablet (Hyzaar) pantoprazole 40 mg tablet,delayed 40 mg PO DAILY #90 tabs 07/22/21 release (Protonix) montelukast 10 mg tablet 10 mg PO DAILY #90 tabs 11/08/21 (Singulair) atorvastatin 40 mg tablet 40 mg PO QPM #90 tabs 12/20/21 fluticasone propionate 50 1 spray NS BID #15.8 mL 12/20/21 mcg/actuation nasal spray,suspension diltiazem HCl 120 mg 120 mg PO BID #180 tab-caps 01/24/22 capsule,extended release 24 hr (Cardizem CD) potassium chloride 10 mEq 10 meq PO BID #180 tabs 01/24/22 tablet,extended release(part/cryst) fluticasone furoate 100 1 inh inhalation DAILY #60 ea 03/11/22 mcg-vilanterol 25 mcg/dose inhalation powder (Breo Ellipta) sertraline 100 mg tablet 100 mg PO DAILY #90 tabs 03/17/22 Allergies Allergy/AdvReac Type Severity Reaction Status Date / Time budesonide Allergy Mild ITCH Verified 02/20/22 13:21 formoterol Allergy Mild ITCH Verified 02/20/22 13:21 amlodipine AdvReac Intermediate ANKLE Verified 02/20/22 13:21 SWELLING DOG DANDER Allergy Mild Other (See Uncoded 02/20/22 13:21 Comment) DUST Allergy Mild Uncoded 02/20/22 13:21 General Stated Complaint: Orthopedic ANNEMARIE: 3 Review of Systems Narrative: Review of Systems Constitutional: negative Eyes: negative ENT: negative Cardiovascular: negative Respiratory: negative Gastrointestinal: negative : negative Musculoskeletal: Wrist pain, elbow pain Skin: negative Neurologic: Head injury, 1 episode of vomiting Psych: negative PFSH All Active Problems (Updated 03/26/22 @ 20:01 by Sriram Jimenez MD) Fracture of wrist (Acute) Bilateral tinnitus (Acute) Pre-diabetes (Acute) Post herpetic neuralgia (Acute) Osteoporosis (Chronic) 2021 Osteopenia Wrist Osteopenia of hip (Acute) Osteopenia of lumbar spine (Acute) Dependent edema (Acute) Hyperlipidemia (Acute) Colon polyp (Acute) GERD (gastroesophageal reflux disease) (Chronic 12/19/14) Essential hypertension (Chronic 04/18/13) Asthma (Chronic) Anxiety and depression (Chronic 12/19/14) Allergic rhinitis due to other allergen (Chronic 10/12/13) Allergy Injections Medical History (Updated 03/26/22 @ 20:01 by Sriram Jimenez MD) COVID-19 07/03/21 Fracture of radius History of ectopic Inversion of nipple left Loss of smell (12/19/14) Shingles Verruca She can get mivs-dwh-myavbiw salicylic acid topical to apply to warts daily or every other day. Return monthly or as needed for repeat of cyotherapy. Surgical History Abdominal hysterectomy (~1976) 1996 Bilateral salpingectomy with oophorectomy (~1976) 1980- ectopic, one tube removed Colonoscopy - IV Sedation (12/02/12) NEGATIVE; DR. Ioana KING EGD - MAC (~2009) neg History of bilateral salpingo-oophorectomy with [id number] History of colonoscopy (~05/2019) History of esophagogastroduodenoscopy , Ectopic sinus surgery (~2003) Status post operation on paranasal sinus Family History Mother , 81 Essential hypertension Heart disease Father , 84 Essential hypertension Heart disease Sister No problems noted. Brother No problems noted. Paternal Grandmother Cancer Sister No problems noted. Social History (Updated 12/24/21 @ 14:27 by Susana Valverde) Smoking/Tobacco Use Status: Former Tobacco Use Quit Date: 05/18/70 Pack-years: 1 Tobacco: How many years used: 1 Second Hand Exposure: Yes Smoking risk assessment performed?: Yes Alcohol Intake: current Alcohol Intake frequency: holidays/special occasions o nly Drug use: Never Substance use type: does not use Caregiver/Support person: No Household members: spouse Housing: house Communication Needs: None Do you need help understanding health information?: Rarely Pets and animals: No What is your relationship status?: Panel score (0-1 are the most socially isolated patients): 1 Berna/Zoroastrian: Lutheran Special berna needs: No Seatbelt use: always Drive 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 Do you feel safe at home: Yes Do you feel safe in your relationship?: Yes Exam Narrative Exam Narrative: Physical Examination General: alert, awake, cooperative, resting comfortably, no acute distress HEENT: normocephalic, atraumatic; PERRL, EOM intact, conjunctiva normal; no nasal discharge; moist mucous membranes, oral and pharyngeal mucosa normal, tolerating secretions Neck: supple, trachea midline; full ROM Chest: normal to inspection Respiratory: normal respiratory effort, speaking in full sentences, clear to auscultation, no wheezing, rales or rhonchi Cardiac: regular rate, regular rhythm, S1S2 intact, no murmurs rubs or gallops GI: abdomen soft, non-tender, non-distended; no palpable mass or hepatosplenomegaly Skin: no lesions, rashes or trauma appreciated Neuro: AAOx3, normal speech, moving all extremities; cranial nerves intact 5 and 5 strength upper and lower extremities. No ataxia. Extremities: Pain to distal wrist left upper extremity, radial pulse intact, median radial and ulnar nerve distribution sensory exam intact, range of motion of elbow intact however slight discomfort at elbow to palpation, no effusion. Soft compartments. Psych: Appropriate mood and affect Course Vital Signs Vital signs: Vital Signs Temperature 37 C 03/26/22 16:18 Pulse 69 03/26/22 16:18 Respiratory Rate 20 03/26/22 16:18 Blood Pressure 137/57 L 03/26/22 16:18 Pulse Oximetry 99 03/26/22 16:18 Temperature 37 C 03/26/22 16:18 Temperature Source Tympanic 03/26/22 16:18 Pulse 69 03/26/22 16:18 Respiratory Rate 20 03/26/22 16:18 Respiratory Effort 03/26/22 16:32 Blood Pressure 137/57 L 03/26/22 16:18 Blood Pressure Position Sitting 03/26/22 16:18 Pulse Oximetry 99 03/26/22 16:18 Oxygen Delivery Method Room Air 03/26/22 16:18 Oxygen Flow Rate 0 03/26/22 16:18 Pain Level 9 03/26/22 16:18
[2022-03-26] MEDS: MORPHine 4 MG/ML SYR 2 MG IM (16:45)
[2022-03-26] MEDS: Ondansetron O.D.T. 4 MG TABEF SL (16:45)
--- NOTE | 2022-03-26 19:45 | DI.VRAD_ITS ---
PROCEDURE INFORMATION: Exam: XR Left Elbow Exam date and time: 03/26/2022 7:28 PM Age: 71 years old Clinical indication: Other: Fall arm injury TECHNIQUE: Imaging protocol: Radiologic exam of the Left elbow. Views: 1 or 2 views. COMPARISON: CR XR WRIST LT COMPLETE 03/26/2022 7:25 PM FINDINGS: Bones/joints: No acute fracture or dislocation Soft tissues: Normal. IMPRESSION: No acute findings. Dictated and Authenticated by: Konrad Nichols MD. Ordering:CHRISTIAN Bhatia MD
--- NOTE | 2022-03-26 19:46 | DI.VRAD_ITS ---
PROCEDURE INFORMATION: Exam: CT Head Without Contrast Exam date and time: 03/26/2022 7:17 PM Age: 71 years old Clinical indication: Other: Fall TECHNIQUE: Imaging protocol: Computed tomography of the head without contrast. COMPARISON: No relevant prior studies available. FINDINGS: Brain: Moderate volume loss No hemorrhage. Mild white matter disease. No mass effect. Cerebral ventricles: No ventriculomegaly. Paranasal sinuses: Fluid levels and mucosal thickening in the left sphenoid and right maxillary sinuses. Mucosal thickening in the ethmoid air cells. Mastoid air cells: Visualized mastoid air cells are well aerated. Bones/joints: Unremarkable. No acute fracture. Soft tissues: Unremarkable. IMPRESSION: No acute intracranial hemorrhage Sinusitis as described. Dictated and Authenticated by: Konrad Nichols MD. Ordering:CHRISTIAN Bhatia MD
--- NOTE | 2022-03-26 19:46 | DI.VRAD_ITS ---
PROCEDURE INFORMATION: Exam: XR Left Wrist Exam date and time: 03/26/2022 7:25 PM Age: 71 years old Clinical indication: Other: Fall TECHNIQUE: Imaging protocol: Radiologic exam of the Left wrist. Views: 3 or more views. COMPARISON: No relevant prior studies available. FINDINGS: Bones/joints: Comminuted impacted distal radius fracture with dorsal angulation. No dislocation. Ulnar styloid fracture Soft tissues: Calcification at the TFCC versus faint osseous fragment. Diffuse swelling IMPRESSION: Comminuted distal radius fracture and ulnar styloid fracture Faint osseous fragment versus calcification adjacent to the ulnar styloid Dictated and Authenticated by: Konrad Nichols MD. Ordering:CHRISTIAN Bhatia MD
[2022-03-26] MEDS: oxyCODONE 5 mg/Acetaminophen 325 mg TAB 1 TAB PO (20:16)
== END 2022-03-26 20:13 | disposition home or self-care (01) ==
PROVIDERS: Emergency Provider Emergency Medicine; PCP Nurse Practitioner
DX: S52.592A Other fractures of lower end of left radius, initial encounter for closed fracture (principal); S52.612A Displaced fracture of left ulna styloid process, initial encounter for closed fracture; Z86.16 Personal history of COVID-19; W11.XXXA Fall on and from ladder, initial encounter
CPT/HCPCS: 29125; 96372; 99284; 70450; 73070; 73080; 73110; J2270

== ENCOUNTER 2022-03-27 12:07 | Day surgery (SDC) | payer MEDICARE, BC, SELFPAY ==
[2022-03-27 12:28] VITALS: BP 150/69; PULSE 81; RESP 16; TEMP 36.9; O2SAT 100
--- NOTE | 2022-03-27 12:36 | OCONE_ITS ---
Date of service: 03/27/22 Time of Service: 12:36 History of Present Illness Narrative: Fall off a stepladder yesterday onto left outstretched wrist and elbow. Both were initially painful. Now pain localizes to the wrist. No significant numbness or tingling. Did not remember some deformity. Splinted in the emergency department yesterday evening without any reduction. Mksit-[id number]-[id number]. Likes to use her hands for cell phone games. Previous injury to the right wrist, which healed well. No significant medical problems. Amlodipine causes ankle swelling. Assessment and Plan Assessment and plan (1) Fracture of wrist: Status: Acute Assessment and plan: 71-year-old female with left displaced distal radius and ulnar styloid fractures Significant dorsal angulation. Possibly largely extra-articular fracture. Recommend initial management with manipulation and splinting. Decision to proceed with surgery today 03/27/2022 left wrist closed reduction The risks, benefits, and alternatives were thoroughly discussed. Discussed need for monitoring and potential future ORIF. Patient was counseled regarding pain management, expected postoperative course, and recovery timeline. All questions were answered. Informed consent was obtained. Agree and understand treatment plan. Follow up 10-14 days after surgery. Will call if any changes or concerns. Breathing comfortably on room air. No coughs or wheezes. 2+ right radial pulse. Regular rate and rhythm. Review of Systems All systems reviewed & are unremarkable except as noted in HPI and below PFSH All Active Problems (Updated 03/27/22 @ 12:38 by Cristobal Scott MD) Fracture of wrist (Acute 03/26/22) Bilateral tinnitus (Acute) Pre-diabetes (Acute) Post herpetic neuralgia (Acute) Osteoporosis (Chronic) 2021 Osteopenia Wrist Osteopenia of hip (Acute) Osteopenia of lumbar spine (Acute) Dependent edema (Acute) Hyperlipidemia (Acute) Colon polyp (Acute) GERD (gastroesophageal reflux disease) (Chronic 12/19/14) Essential hypertension (Chronic 04/18/13) Asthma (Chronic) Anxiety and depression (Chronic 12/19/14) Allergic rhinitis due to other allergen (Chronic 10/12/13) Allergy Injections Medical History (Updated 03/27/22 @ 12:38 by Cristobal Scott MD) COVID-19 07/03/21 Fracture of radius History of ectopic Inversion of nipple left Loss of smell (12/19/14) Shingles Verruca She can get thsj-zum-ddqqchh salicylic acid topical to apply to warts daily or every other day. Return monthly or as needed for repeat of cyotherapy. Surgical History Abdominal hysterectomy (~1976) 1996 Bilateral salpingectomy with oophorectomy (~1976) 1980- ectopic, one tube removed Colonoscopy - IV Sedation (12/02/12) NEGATIVE; DR. Ioana KING EGD - MAC (~2009) neg History of bilateral salpingo-oophorectomy with [id number] History of colonoscopy (~05/2019) History of esophagogastroduodenoscopy , Ectopic sinus surgery (~2003) Status post operation on paranasal sinus Family History Mother , 81 Essential hypertension Heart disease Father , 84 Essential hypertension Heart disease Sister No problems noted. Brother No problems noted. Paternal Grandmother Cancer Sister No problems noted. Social History (Updated 12/24/21 @ 14:27 by Susana Valverde) Smoking/Tobacco Use Status: Former Tobacco Use Quit Date: 05/18/70 Pack-years: 1 Tobacco: How many years used: 1 Second Hand Exposure: Yes Smoking risk assessment performed?: Yes Alcohol Intake: current Alcohol Intake frequency: holidays/special occasions only Drug use: Never Substance use type: does not use Caregiver/Support person: No Household members: spouse Housing: house Communication Needs: None Do you need help understanding health information?: Rarely Pets and animals: No What is your relationship status?: Panel score (0-1 are the most socially isolated patients): 1 Berna/Baptism: Yarsani Special berna needs: No Seatbelt use: always Drive intox or ride 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 No significant median nerve symptoms. No obvious tendon deficit. Pain discomfort localized by the wrist without any significant elbow discomfort anymore at this time. All fingers pink and warm with brisk cap refill
[2022-03-27] MEDS: Lactated Ringers 1,000 ML 30 ML IV (12:47)
--- NOTE | 2022-03-27 13:00 | DI.RAD_ITS ---
Exam(s) XR WRIST LT LIMITED EXAM: XR WRIST LT LIMITED CLINICAL HISTORY: fractured left wrist TECHNIQUE: 2D and realtime digital imaging was performed. CONTRAST MATERIAL: Refer to procedure report. COMPARISON: CR,XR XR WRIST LT COMPLETE from 03/26/2022 FINDINGS: Fluoroscopy was provided for Dr. Scott during the performance of a reduction of the distal radial fr acture. Alignment appears anatomic.. Please refer to the procedure report for complete details. Ka,r=0.08 mGy IMPRESSION: RADIATION DOSE DELIVERED:
--- NOTE | 2022-03-27 13:34 | W.PM.DSUDISC ---
Date of service: 03/27/22 Time of Service: 14:25 Discharge Plan Disposition Patient Disposition: HOME Condition: Good Discharge Details Reason For Visit: (L) WRIST FX Attending Provider: Cristobal Scott Primary Care Provider: Promise Lucio Home Meds and New Rx's Prescriptions: New naproxen 250 mg tablet 250 - 500 mg PO BID PRNQty: 20 0RF Rx Instructions: take with a meal oxycodone 5 mg tablet 5 - 10 mg PO Q4H MDD 30 mg PRN (Reason: moderate to severe pain) Qty: 7 0RF Continued cholecalciferol (vitamin D3) 2,000 unit capsule 2,000 unit PO DAILY multivitamin Capsule 1 cap PO DAILY gabapentin 600 mg tablet extended release 24 hr 1,800 mg PO QPM PRN melatonin 10 mg tablet 10 mg PO HS PRN calcium carbonate [Calcium 600] 600 MG tablet 600 mg PO DAILY albuterol sulfate 90 mcg/actuation HFA aerosol inhaler 2 puff Inhalation Q4H PRN Qty: 1 5RF losartan-hydrochlorothiazide [Hyzaar] 100-25 mg tablet 1 tab PO DAILY Qty: 90 3RF pantoprazole [Protonix] 40 mg tablet,delayed release (DR/EC) 40 mg PO DAILY Qty: 90 3RF montelukast [Singulair] 10 mg tablet 10 mg PO DAILY Qty: 90 3RF fluticasone propionate 50 mcg/actuation spray,suspension 1 spray NS BID Qty: 15.8 4RF atorvastatin 40 mg tablet 40 mg PO QPM Qty: 90 3RF potassium chloride 10 mEq tablet,ER particles/crystals 10 meq PO BID Qty: 180 3RF diltiazem HCl [Cardizem CD] 120 mg capsule,extended release 24hr 120 mg PO BID Qty: 180 3RF fluticasone furoate-vilanterol [Breo Ellipta] 100-25 mcg/dose blister with device 1 inh IH DAILY Qty: 60 11RF sertraline 100 mg tablet 100 mg PO DAILY Qty: 90 4RF Discharge Instructions Additional Instructions: Surgery: Left distal radius closed reduction with manipulation under anesthesia Activity: Non-weightbearing left wrist. Recommend elevation to minimize swelling and discomfort. Wiggle fingers and thumb to prevent stiffness. May use hand lightly for activities of daily living. Prescriptions: Naproxen 250 mg take 1?2 every 12 hours with a meal as needed for moderate pain and swelling Oxycodone 5 mg take 1?2 every 4 hours as needed for severe pain Recommend over-the counter Tylenol/acetaminophen for mild pain. Dressings: Leave splint and dressing in place until follow-up. Keep clean and dry at all times. You may loosen/adjust Lupillo bandage to accommodate swelling and comfort. Follow-up: 10-[address] Scott Do not drink alcohol or drive for at least 24 hours after anesthesia. Please call the office during business hours with any questions or concerns. Discharge Orders Discharge Orders: Discharge Order (Routine); Ordered 03/27/22 Ordered By: Cristobal Scott DS: Diagnosis Discharge Diagnosis (1) Fracture of wrist: Status: Acute
--- NOTE | 2022-03-27 13:44 | W.ANESPRE ---
General Info Date of Service Date Performed: 03/27/22 Height: 5 ft 1 in Weight: 76 kg Body Mass Index (BMI): 31.6 Surgical Procedure: Operation Date: 03/27/22 14:40 Proposed Procedure Side Surgeon p Closed Reduction Wrist Left Cristobal Scott MD Actual Procedure Side Surgeon p Closed Reduction Wrist Left Cristobal Scott MD Pre-Op Diagnosis Post-Op Diagnosis left displaced distal radius and ulnar styloid fractures Meds Allergies and Home Medications Allergies Allergy/AdvReac Type Severity Reaction Status Date / Time budesonide Allergy Mild ITCH Verified 03/27/22 12:26 formoterol Allergy Mild ITCH Verified 03/27/22 12:26 amlodipine AdvReac Intermediate ANKLE Verified 03/27/22 12:26 SWELLING DOG DANDER Allergy Mild Other (See Uncoded 03/27/22 12:26 Comment) DUST Allergy Mild Uncoded 03/27/22 12:26 Home Medication Medication Instructions Recorded calcium carbonate 600 mg calcium 600 mg PO DAILY 10/18/12 (1,500 mg) tablet (Calcium) cholecalciferol (vitamin D3) 50 2,000 unit PO DAILY 12/08/18 mcg (2,000 unit) capsule multivitamin 1 cap PO DAILY 12/08/18 albuterol sulfate 90 mcg/actuation 2 puff inhalation Q4H PRN ##1 10/01/20 aerosol inhaler losartan 100 1 tab PO DAILY #90 tab-caps 05/02/21 mg-hydrochlorothiazide 25 mg tablet (Hyzaar) pantoprazole 40 mg tablet,delayed 40 mg PO DAILY #90 tabs 07/22/21 release (Protonix) gabapentin 600 mg tablet,extended 1,800 mg PO QPM PRN 10/15/21 release 24 hr montelukast 10 mg tablet 10 mg PO DAILY #90 tabs 11/08/21 (Singulair) atorvastatin 40 mg tablet 40 mg PO QPM #90 tabs 12/20/21 fluticasone propionate 50 1 spray NS BID #15.8 mL 12/20/21 mcg/actuation nasal spray,suspension diltiazem HCl 120 mg 120 mg PO BID #180 tab-caps 01/24/22 capsule,extended release 24 hr (Cardizem CD) potassium chloride 10 mEq 10 meq PO BID #180 tabs 01/24/22 tablet,extended release(part/cryst) melatonin 10 mg tablet 10 mg PO HS PRN 02/19/22 fluticasone furoate 100 1 inh inhalation DAILY #60 ea 03/11/22 mcg-vilanterol 25 mcg/dose inhalation powder (Breo Ellipta) sertraline 100 mg tablet 100 mg PO DAILY #90 tabs 03/17/22 naproxen 250 mg tablet 250 - 500 mg PO BID PRN #20 tabs 03/27/22 oxycodone 5 mg tablet 5 - 10 mg PO Q4H PRN moderate to 03/27/22 severe pain #7 tabs Current Visit Medications: Current Medications Generic Name Dose Route Start Last Admin Trade Name Freq PRN Reason Stop Dose Admin Ringer's Solution 1,000 mls @ 30 mls/hr 03/27/22 06:00 03/27/22 12:47 IV 04/26/22 23:59 30 mls/hr INFUSION LEOBARDO Administration IV Miscellaneous Supplies 1 each 03/27/22 06:00 Iv Access IV 04/26/22 23:59 DIRECTED LEOBARDO Oxycodone HCl 0 mg 03/27/22 13:33 Oxycodone 5 Mg Tab PO Q3H PRN PRN Pain Sodium Chloride 0 ml 03/27/22 06:00 Normal Saline Flush 10 Ml Syr IV 04/26/22 23:59 PRN PRN Sodium Chloride 0 ml 03/27/22 06:00 Normal Saline 10 Ml Vial IJ 04/26/22 23:59 DIRECTED PRN Sterile Water 0 ml 03/27/22 06:00 Water,Injection,Sterile 10 Ml Vial IJ 04/26/22 23:59 DIRECTED PRN PFSH Active Problems Active Problems: Problem Status Onset Code Fracture of wrist 03/26/22 S62.109A Bilateral tinnitus H93.13 Pre-diabetes R73.03 Post herpetic neuralgia B02.29 Osteoporosis M81.0 Osteopenia of hip M85.859 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 Return monthly or as needed for repeat of cyotherapy. Surgical History Surgical History Abdominal hysterectomy (~1976) 1996 Bilateral salpingectomy with oophorectomy (~1976) 1980- ectopic, one tube removed Colonoscopy - IV Sedation (12/02/12) NEGATIVE; DR. Ioana KING EGD - MAC (~2009) neg History of bilateral salpingo-oophorectomy with [id number] History of colonoscopy (~05/2019) History of esophagogastroduodenoscopy , Ectopic sinus surgery (~2003) Status post operation on paranasal sinus Tobacco Smoking/Tobacco Use Status: Former Tobacco Use Passive smoking exposure: Yes Second hand exposure: Yes Alcohol Alcohol Intake: current Alcohol intake frequency: holidays/special occasions only Substance Use Substance use: Never Substance use type: does not use Vital Signs and Lab Results Vital Signs Most Recent Vital Signs in EMR: Most Recent Vital Signs Temp Pulse Resp BP Pulse Ox 36.9 C 81 16 150/69 H 100 03/27/22 12:28 03/27/22 12:28 03/27/22 12:28 03/27/22 12:28 03/27/22 12:28 Lab Results Blood Type / Crossmatch: No Data to Display Complete Blood Count: No Data to Display Complete Metabolic Panel: No Data to Display Liver Function Panel: No Data to Display Coagulation Panel: No Data to Display Cardiac Panel: No Data to Display Arterial Blood Gas: No Data to Display Venous Blood Gas: No Data to Display Pancreas Panel: No Data to Display Thyroid Panel: No Data to Display Infectious Disease: No Data to Display Blood Cultures: No Data to Display Toxicology Panel: No Data to Display Imaging and Studies Imaging and Studies Study information below may be from another EMR and interpreted by another provider. Please see original notes in EMR for more complete details. EKG Summary: Conclusion Sinus tachycardia...rate> 99 Probable left atrial enlargement...P >50mS, <-0.10mV V1 Poor R wave progression 05/23/21 Stress Test Summary: Stress ECG Conclusion 1. Resting electrocardiogram showed voltage for left ventricular hypertrophy 2. Patient exercised on the Rafael protocol and completed a workload of 7 METS limited by shortness of breath and fatigue 3. Resting hypertension. Normal hemodynamic response to exercise. Peak heart rate achieved was 94% of predicted for age 4. Electrocardiographically the test was consistent with myocardial ischemia 5. There were no significant dysrhythmias Light Treadmill Score is 5 which is Low risk. 04/15/21 Anesthesia Assessment and Plan Anesthesia History Personal History: No History of Anesthesia Complications Family History: No Family History of Anesthesia Complications Exercise Tolerance Exercise Tolerance: Metabolic Equivalents>4 Pertinent Negatives Pertinent Negatives: No Symptoms of GERD (Well controlled), No Major Cardiovascular Symptoms or Complaints, No Major Pulmonary Symptoms or Complaints and No History of CVA/TIA Cardiac & Pulmonary Exam Cardiac Exam: Normal S1/S2 Heart Sounds Pulmonary Exam: Clear Bilateral Breath Sounds Implantable Cardiac Device Does patient have a Pacemaker or an ICD?: No Airway Exam Known Difficult Airway: No Mallampati Class: 2 Mouth Opening: Normal (> 3cm) Thyromental Distance: Greater than 3 cm Neck Range of Motion: Full ROM Neck Circumference: Normal Teeth Condition: Normal Dentition ASA Classification ASA Score: ASA 2 Emergency Case?: No NPO Status NPO Status: NPO Clears >2 hours, Solids >8 hours Anesthesia Plan Resuscitation Status: Full Code Anesthesia Technique: General Anesthesia Airway Planned: Natural Airway Pain Management: Surgeon and patient request nerve block (Consented for block post op PRN) Monitors Used: Standard Monitors
[2022-03-27 13:46] VITALS: BMI 31.6
--- NOTE | 2022-03-27 14:00 | W.PM.OP ---
Date of service: 03/27/22 Time of Service: 14:26 Operative Note Operative Note DATE OF PROCEDURE: 03/27/22 PRE-OP DIAGNOSIS: Displaced left distal radius and ulnar styloid fractures POST-OP DIAGNOSIS: same PROCEDURE: Closed treatment Left distal radius fracture with manipulation under anesthesia, CPT #77371 SURGEON: Cristobal Scott ANESTHESIA TYPE: General LMA/ETT Refer to Anesthesia Record COMPLICATIONS: None Patient was transported to: PACU Patient's condition: stable Indications: Please see complete medical record for details. Procedure Description: In the operating room, general anesthesia was established. The patient was positioned supine on the stretcher. Preoperative antibiotics were omitted. The correct patient, procedure, and side of the procedure were all verified prior to beginning. There was obvious dorsal distal radius deformity. The single winding rack operator reduction maneuver was done involving axial traction, slight exaggeration of the deformity, followed by corrective volar directed force. Grossly the reduction was appropriate. AP and lateral fluoroscopy showed excellent reduction. An appropriately padded plaster sugar-tong splint was then applied to the extremity taking care to ensure three-point mold maintaining reduction. Final AP and lateral fluoroscopy confirmed excellent maintained reduction. The patient awoke from anesthesia without complication and was transferred to the recovery room in a stable condition.
[2022-03-27 14:28] VITALS: BP 162/65; PULSE 70; RESP 16; TEMP 36.7; O2SAT 96
--- NOTE | 2022-03-27 14:35 | W.ANESPOSTOP ---
Postoperative Evaluation Date, Time and Location Date Performed: 03/27/22 Time Performed: 14:36 Patient Location: Day Surgery Unit Vital Signs Most Recent Imported Vital Signs: Most Recent Vital Signs Temp Pulse Resp BP Pulse Ox 36.9 C 81 16 150/69 H 100 03/27/22 12:28 03/27/22 12:28 03/27/22 12:28 03/27/22 12:28 03/27/22 12:28 Most Recent Manually Entered Vital Signs: Adult Blood Pressure: 162/65 Heart Rate: 70 Respirations: 14 Oxygen Saturation (%): 96 Temperature (C): 36.7 C Pain Score (0-10 Scale): 9 Assessment Mental Status: Awake (Alert & Oriented to Patient Baseline) Airway and Respiratory Function: Patent airway with normal (patient baseline) respiratory exam Cardiovascular Function: Hemodynamically Stable Hydration Status: Adequately Hydrated Nausea & Vomiting: No Nausea or Vomiting Pain: Pain is Moderate or Severe (Med coming) Postoperative Pain Management: Pain being addressed with medication Peripheral Nerve Block: Patient did not receive a nerve block
[2022-03-27 14:38] VITALS: BP 162/65; PULSE 70; RESP 14; TEMPC 36.7; O2SAT 96
[2022-03-27] MEDS: oxyCODONE 5 MG TAB PO ×2 (14:49→15:59)
[2022-03-27 15:02] VITALS: BP 161/67; PULSE 71; RESP 16; TEMP 36.8; O2SAT 94
[2022-03-27 16:08] VITALS: BP 142/63; PULSE 80; RESP 16; TEMP 36.7; O2SAT 93
== END 2022-03-27 16:25 | disposition home or self-care (01) ==
PROVIDERS: PCP Nurse Practitioner; Visit Provider Student in an Organized Health Care Education/Training Program
PROC: (CPT 25605; principal; 2022-03-27 14:30)
DX: S52.592A Other fractures of lower end of left radius, initial encounter for closed fracture (principal); S52.612A Displaced fracture of left ulna styloid process, initial encounter for closed fracture; W11.XXXA Fall on and from ladder, initial encounter; R73.03 Prediabetes
CPT/HCPCS: 25605; 73100; J1885; J2704

== ENCOUNTER 2022-04-08 10:25 | Outpatient (CLI) | payer MEDICARE, BC, SELFPAY ==
--- NOTE | 2022-04-08 10:15 | DI.RAD_ITS ---
Exam(s) XR WRIST LT LIMITED EXAM: XR WRIST LT LIMITED CLINICAL HISTORY: LEFT WRIST FX F/U. TECHNIQUE: 2D digital imaging was performed of the left wrist. Two images were obtained. Scaphoid, PA, oblique and lateral views were obtained. COMPARISON: CR,XR XR WRIST LT COMPLETE from 03/26/2022 XA XR WRIST LT LIMITED from 03/27/2022 FINDINGS: BONES: There has been no change in alignment of the ulnar styloid process fracture. There is again s een a fracture through the distal metaphysis of the left radius. There is mild impaction of the frac ture now noted. No new fracture or dislocation is seen. No bony destructive lesion is seen. JOINTS: The carpal bones are normally aligned. SOFT TISSUE: Normal. IMPRESSION: Distal radial and ulnar fractures as described. DATA REPOSITORY: RADIATION DOSE DELIVERED:
== END 2022-04-08 10:26 | disposition home or self-care (01) ==
LOC: DIORS 10:25
PROVIDERS: PCP Nurse Practitioner Family; Referring Provider Nurse Practitioner Family; Visit Provider Student in an Organized Health Care Education/Training Program
DX: S52.502D Unspecified fracture of the lower end of left radius, subsequent encounter for closed fracture with routine healing (principal); S52.602D Unspecified fracture of lower end of left ulna, subsequent encounter for closed fracture with routine healing; X58.XXXD Exposure to other specified factors, subsequent encounter
CPT/HCPCS: 73100

== ENCOUNTER 2022-05-06 11:26 | Outpatient (CLI) | payer MEDICARE, BC, SELFPAY ==
--- NOTE | 2022-05-06 11:15 | DI.RAD_ITS ---
Exam(s) XR WRIST LT LIMITED EXAM: XR WRIST LT LIMITED CLINICAL HISTORY: distal radius and ulna fx f/u. TECHNIQUE: 2D digital imaging was performed. COMPARISON: CR XR WRIST LT LIMITED from 04/08/2022 FINDINGS: Two views: The impacted fracture of the distal radius is again noted as is the fracture of the base of the ulnar styloid. No further displacement no obvious scaphoid fracture. IMPRESSION: Fracture sites distal radius and ulna appear stable when compared to 04/08/2022. DATA REPOSITORY: RADIATION DOSE DELIVERED:
== END 2022-05-06 11:27 | disposition home or self-care (01) ==
LOC: DIORS 11:27
PROVIDERS: PCP Nurse Practitioner Family; Referring Provider Nurse Practitioner Family; Visit Provider Student in an Organized Health Care Education/Training Program
DX: S52.502D Unspecified fracture of the lower end of left radius, subsequent encounter for closed fracture with routine healing (principal); S52.602D Unspecified fracture of lower end of left ulna, subsequent encounter for closed fracture with routine healing; X58.XXXD Exposure to other specified factors, subsequent encounter
CPT/HCPCS: 73100

== ENCOUNTER 2022-06-03 10:53 | Outpatient (CLI) | payer MEDICARE, BC, SELFPAY ==
--- NOTE | 2022-06-03 10:45 | DI.RAD_ITS ---
Exam(s) XR WRIST LT LIMITED EXAM: XR WRIST LT LIMITED CLINICAL HISTORY: LEFT WRIST F/U. TECHNIQUE: 2D digital imaging was performed. COMPARISON: CR XR WRIST LT LIMITED from 05/06/2022 FINDINGS: Two views: Stable appearance of the fracture sites in distal radius and ulnar styloid. Mild impaction. No furt her displacement. Scapholunate distance remains normal. No additional fractures identified. IMPRESSION: Stable appearance. DATA REPOSITORY: RADIATION DOSE DELIVERED:
== END 2022-06-03 10:54 | disposition home or self-care (01) ==
LOC: DIORS 10:53
PROVIDERS: PCP Nurse Practitioner Family; Referring Provider Nurse Practitioner Family; Visit Provider Student in an Organized Health Care Education/Training Program
DX: S52.502D Unspecified fracture of the lower end of left radius, subsequent encounter for closed fracture with routine healing (principal); S52.602D Unspecified fracture of lower end of left ulna, subsequent encounter for closed fracture with routine healing; X58.XXXD Exposure to other specified factors, subsequent encounter
CPT/HCPCS: 73100

== ENCOUNTER 2022-12-26 02:32 | Outpatient (CLI) | payer MEDICARE, BC, SELFPAY ==
[2022-12-26 12:54] LABS: HCT 39.1 % (36.0-46.0); MCH 29.7 pg (27.0-33.0); MCHC 33.2 % (32.0-36.0); MCV 89 fL (80-95); MPV 9.9 fL (8.0-11.0); Platelet Count 287 10^3/uL (130-400); RBC 4.38 10^6/uL (3.93-5.22); RDW 14.1 % (11.7-14.6); RDW-SD 45.9 fL; WBC 11.24 10^3/uL (4.4-10.8)
[2022-12-26 13:23] LABS: Hemoglobin A1C 6.2 % (<5.7)
[2022-12-26 13:56] LABS: Anion Gap 11.2 mmol/L (3-11); BUN 16 mg/dL (7-18); CO2 25.8 mmol/L (21.0-32.0); CREATININE 0.9 mg/dL (0.55-1.02); Calcium 9.6 mg/dL (8.5-10.1); Calculated LDL 61 mg/dL (<100); Chloride 104 mmol/L (98-107); Cholesterol 165 mg/dL (<200); Glucose 139 mg/dL (74-106); HDL Cholesterol 87 mg/dL (40-60); Potassium 3.4 mmol/L (3.5-5.1); Sodium 141 mmol/L (136-145); Triglyceride 85 mg/dL (<150)
== END 2022-12-26 02:33 | disposition home or self-care (01) ==
LOC: LBO 02:33
PROVIDERS: PCP Nurse Practitioner Family; Visit Provider Nurse Practitioner Family
DX: I10 Essential (primary) hypertension (principal); E78.5 Hyperlipidemia, unspecified; R73.03 Prediabetes; F32.89 Other specified depressive episodes; F41.8 Other specified anxiety disorders; K21.9 Gastro-esophageal reflux disease without esophagitis; M81.0 Age-related osteoporosis without current pathological fracture
CPT/HCPCS: 36415; 80048; 80061; 85027; 83036

== ENCOUNTER → 2023-01-20 01:57 | Outpatient (CLI) | payer MEDICARE, BC, SELFPAY ==
--- NOTE | 2023-01-20 07:45 | DI.MAMMO_ITS ---
Exam(s) MAMMO SCREENING EXAM: MAMMO SCREENING CLINICAL HISTORY: screening, z12.39. TECHNIQUE: Bilateral full field digital CC and MLO mammographic images were obtained with 3D tomosyn thesis and utilizing computer aided detection (CAD). COMPARISON: Prior mammograms were reviewed. FINDINGS: There has been no significant change in the appearance and distribution of the fibroglandular tissue. There are no new spiculated masses nor malignant appearing microcalcification groups. There is no significant architectural distortion nor skin thickening-retraction. IMPRESSION: No radiographic evidence of malignancy. BI-RADS Category 1 - Negative Breast Density - Category B - Scattered areas of fibroglandular density Breast density Category C or D implies that the patient has dense breast tissue. Dense breast tissue can make it harder to find cancer on a mammogram. Dense breast tissue is also associated with an incr eased risk of breast cancer. This information about the result of the mammogram report was provided to the patient to raise their awareness. Use this report when you speak with the patient about their risks for breast cancer, which includes their family history. At that time, you may recommend additional screening tests (Ultrasoun d or MRI) as these tests may add significant information. A negative radiographic report should not delay biopsy if a dominant or clinically suspicious mass is present. Up to ten percent of cancers are not identified on mammography. A negative report may reinforce clinical impression. Adenosis and dense breasts may obscure an underlying neoplasm. False positive reports average 6 to 10%. Patient will receive a letter notifying them of these results.
== END ==
PROVIDERS: PCP Nurse Practitioner Family; Visit Provider Nurse Practitioner Family
DX: Z12.31 Encounter for screening mammogram for malignant neoplasm of breast (principal)
CPT/HCPCS: 77063; 77067

== ENCOUNTER 2023-08-18 04:54 | Outpatient (CLI) | payer MEDICARE, BC, SELFPAY ==
[2023-08-18 12:07] LABS: HCT 43.5 % (36.0-46.0); HGB 14.2 g/dL (11.2-15.7); MCH 29.7 pg (27.0-33.0); MCHC 32.6 % (32.0-36.0); MCV 91 fL (80-95); MPV 10.1 fL (8.0-11.0); Platelet Count 319 10^3/uL (130-400); RBC 4.78 10^6/uL (3.93-5.22); RDW 13.5 % (11.7-14.6); RDW-SD 45.6 fL; WBC 7.66 10^3/uL (4.4-10.8)
[2023-08-18 12:29] LABS: Hemoglobin A1C 6.3 % (<5.7)
[2023-08-18 12:44] LABS: ALT 31 U/L (14-59); AST 21 U/L (15-37); Albumin 3.8 g/dL (3.4-5.0); Alkaline Phosphatase 96 U/L (46-116); Anion Gap 12.2 mmol/L (3-11); BUN 16 mg/dL (7-18); Bilirubin, Total 0.6 mg/dL (0.2-1.0); CO2 27.8 mmol/L (21.0-32.0); CREATININE 0.8 mg/dL (0.55-1.02); Calcium 9.6 mg/dL (8.5-10.1); Calculated LDL 65 mg/dL (<100); Chloride 105 mmol/L (98-107); Cholesterol 165 mg/dL (<200); Estimated GFR 77.27 (mL/min/1.73m2); Glucose 132 mg/dL (74-106); HDL Cholesterol 87 mg/dL (40-60); Potassium 3.6 mmol/L (3.5-5.1); Sodium 145 mmol/L (136-145); TSH (W/Ref FT4) 2.59 uIU/mL (0.36-3.74); Total Protein 7.8 g/dL (6.4-8.2); Triglyceride 68 mg/dL (<150)
[2023-08-18 13:02] LABS: NT-proBNP 79 pg/mL (<300)
== END 2023-08-18 04:55 | disposition home or self-care (01) ==
PROVIDERS: PCP Nurse Practitioner Family; Visit Provider Nurse Practitioner Family
DX: I10 Essential (primary) hypertension (principal); R01.1 Cardiac murmur, unspecified; E78.5 Hyperlipidemia, unspecified; R73.03 Prediabetes
CPT/HCPCS: 36415; 80053; 80061; 85027; 83036; 83880; 84443

== ENCOUNTER → 2023-08-28 00:13 | Outpatient (CLI) | payer MEDICARE, BC, SELFPAY ==
--- NOTE | 2023-08-28 07:45 | DI.US_ITS ---
APPROVED REPORT EXAM: Comprehensive 2D, Doppler, and color-flow Echocardiogram Patient Location: Out-Patient Lunchroom Monitor: Meagan Hewitt RDCS (AE) Indications: Cardiac murmur Other Information Study Quality: Adequate Conclusion Normal left ventricular wall thickness and chamber size. EF is 58 % . Wall motion is normal Normal right ventricualr size and function Both atria are normal in size The aortic valve is mildly sclerotic and trileaflet without stenosis or regurgitation Mild mitral annular calcification. Mild mitral regurgitation There is no significant change compared to an echocardiogram 03/07/2021 Wall motion Left Ventricle The left ventricle is normal size. The left ventricular systolic function is normal. The left ventric ular ejection fraction is within the normal range. There is normal left ventricular wall thickness. T here is normal LV segmental wall motion. There is no ventricular septal defect visualized. LVEF is 58 %. Right Ventricle The right ventricle is normal size. The right ventricular systolic function is normal. Atria The left atrium size is normal. The right atrium size is normal. The interatrial septum is intact wit h no evidence for an atrial septal defect. Aortic Valve The Aortic valve is mildly sclerotic. Aortic valve is trileaflet. There is no aortic valvular stenosi s. No aortic regurgitation is present. Mitral Valve Mild mitral annular calcification. No evidence of mitral valve stenosis. Mild mitral regurgitation. Tricuspid Valve The tricuspid valve is normal in structure. There is no tricuspid valve stenosis. Trace tricuspid reg urgitation. Unable to assess PA pressure. Pulmonic Valve The pulmonary valve is normal in structure. There is no pulmonic valvular stenosis. Mild pulmonic re gurgitation. Great Vessels The aortic root is normal in size. The ascending aorta is normal in size. Aortic arch is normal in ca liber. IVC is normal in size and collapses >50% with inspiration. Pericardium There is no pericardial effusion. 2D Dimensions IVSD d PLAX 1.05 cm F: 0.6-1.0 Ao Root d 2.39 cm F: 2.7 - 3.3 LVPW d PLAX 1.01 cm F: 0.6 - 1.0 Ao Asc Diam d 2.81 cm F: 2.3 - 3.1 LVID d PLAX 4.00 cm F: 3.8 - 5.2 LVDs 2.76 cm F: 2.2 - 3.5 LV EF Teichholz 58.2 % FS 30.23 % LV EDV (Teich) 68.4 mL LV ESV (Teich) 28.6 mL M-Mode TAPSE 2.06 cm (M/F) >1.7 Auto EF LV EDV A4C 74.2 mL LV EDV A2C 92.3 mL LV EDV BP 82.7 mL LV ESV A4C 30.8 mL LV ESV A2C 39.2 mL LV ESV BP 34.7 mL LVEF(%) A4C 58.4 % LVEF(%) A2C 57.6 % LVEF(%) BP 58.1 % LV SV A4C 43.4 ml LV SV A2C 53.1 ml LV SV BP 48.1 ml LV CO A4C 3.4 L/min LV CO A2C 3.7 L/min LV CO BP 3.5 L/min HR A4C 77.76 BPM HR A2C 69.10 BPM LV EDV Index (BP) LA Volume LA Length A4C 5.0 cm LA Length A2C 5.2 cm LA Area A4C s 17.52 cm2 LA Area A2C s 17.05 cm2 LA Vol A4C A-L 52.19 mL LA Vol A2C A-L 47.94 mL LA Vol Biplane A-L 50.8 mL LA Vol/BSA A4C A-L LA Vol/BSA A2C A-L LA Vol/BSA BP A-L 28.9 mL/m2 LA Vol A4C MOD 47.0 mL LA Vol A2C MOD 46.4 mL LA Vol BP MOD 47.2 mL RA Volume RA Area A4C 12.8 cm2 RA ESV A4C (A-L) 32.1mL RA Vol/BSA A4C A-L RA Length A4C 4.4 cm RA ESV A4C (MOD) 30.4mL LV Diastology MV E' medial 0.062 (>0.07 m/s) MV E Vmax 1.17 (0.4-1.3 m/s) MV E/E' MED 19.04 (<14) MV A Vmax 1.25 (0.4-1.3 m/s) MV E' lateral 0.062 (>0.1 m/s) E/A Ratio 0.9 MV E/E' LAT 19.04 (<14) MV E' Average 0.062 m/s MV E/E'(average) 19.04 Aortic Valve AoV Vmax 1.72 m/s LVOT Vmax 1.15 m/s AoV Peak Grad 11.8 mmHg LVOT Peak Grad 5.3 mmHg AoV Area (Vmax) 1.79 cm2 LVOT VTI 0.244 m AoV VTI 0.398 m LVOT Mean Grad 2.7 mmHg AoV Mean Lew. 1.17 m/s LVOT SV 65.49 mL AoV Mean Grad 6.3 mmHg LVOT Diam s 1.80 cm AoV Area (VTI) 1.65 cm2 Velocity Ratio 0.67 Mitral Valve MV DT 190 (160-240 msec) MV Vmax TIPS 1.26 m/s MV Mean Grad 3.4 (<2mmHg) MV VTI 0.409 m Pulmonary Valve PV Vmax 1.99 (0.5-1.5 m/s) RVOT Vmax 1.01 m/s PV Peak Grad 15.8 mmHg RVOT Peak Gr. 4.1 mmHg PV Mean Lew 1.39 m/s RVOT VTI 0.263 m PV Mean Grad 9.0 mmHg RVOT Mean Gr. 2.7 mmHg Tricuspid Valve RA Pressure 3.00 mmHg TV S' 0.14 m/s
== END ==
PROVIDERS: PCP Nurse Practitioner Family; Visit Provider Nurse Practitioner Family
DX: R01.1 Cardiac murmur, unspecified (principal)
CPT/HCPCS: 93306

== ENCOUNTER 2023-09-03 11:39 | Outpatient (CLI) | payer MEDICARE, BC, SELFPAY ==
--- NOTE | 2023-09-03 11:30 | RT.EKG_ITS ---
APPROVED REPORT Exam: Resting ECG Reason for Exam: baseline Patient Location: O HR:82 bpm ECG Measurements Heart Rate 82 AXIS WY 170 P 19 QRSd 75 QRS 41 QT 360 T 78 QTc 421 Conclusion Sinus rhythm...normal P axis, V-rate 50- 99 Normal Electrocardiogram Baseline wander in lead(s) I,II,aVR,aVF
== END 2023-09-03 11:40 | disposition home or self-care (01) ==
LOC: DI.CARD 11:41
PROVIDERS: PCP Nurse Practitioner Family; Referring Provider Nurse Practitioner Family; Visit Provider Internal Medicine Cardiovascular Disease
DX: R01.1 Cardiac murmur, unspecified (principal)
CPT/HCPCS: 93010

== ENCOUNTER → 2023-09-03 11:39 | Outpatient (BNVA) | payer MEDICARE, BC, SELFPAY | PROVIDERS: PCP Nurse Practitioner Family; Referring Provider Nurse Practitioner Family; Visit Provider Internal Medicine Cardiovascular Disease | DX: R01.1 Cardiac murmur, unspecified (principal); I10 Essential (primary) hypertension | CPT/HCPCS: 93005; 99213 ==

== ENCOUNTER 2024-01-28 02:15 | Outpatient (CLI) | payer MEDICARE, BC, SELFPAY ==
--- NOTE | 2024-01-28 09:33 | DI.MAMMO_ITS ---
Exam(s) MAMMO SCREENING EXAM: MAMMO SCREENING CLINICAL HISTORY: screening,z12.39 TECHNIQUE: Mammograms were interpreted according to the usual protocol including computer analysis w [employer] CAD system, tomosynthesis and C-view imaging. COMPARISON: 2014 through 2022 FINDINGS: The breasts are composed of scattered fibroglandular densities, Breast Density category B. No suspicious masses or suspicious microcalcifications are seen. No skin thickening or abnormal axillary lymph nodes are seen. There has been no significant change from prior exams. IMPRESSION: BI-RADS Category 1, Negative mammogram Yearly screening mammography is recommended. Breast Density - Category B, scattered fibroglandular densities. A negative radiographic report should not delay biopsy if a dominant or clinically suspicious mass is present. Up to ten percent of cancers are not identified on mammography. A negative report may reinforce clinical impression. Adenosis and dense breasts may obscure an underlying neoplasm. False positive reports average 6 to 10%. Patient will receive a letter notifying them of these results.
== END 2024-01-28 02:35 ==
LOC: DI 02:16
PROVIDERS: PCP Nurse Practitioner Family; Visit Provider Nurse Practitioner Family
DX: Z12.31 Encounter for screening mammogram for malignant neoplasm of breast (principal)
CPT/HCPCS: 77063; 77067

== ENCOUNTER → 2024-11-25 09:38 | Outpatient (BNVA) | payer MEDICARE, BC, SELFPAY | PROVIDERS: PCP Nurse Practitioner Family; Visit Provider Internal Medicine Cardiovascular Disease | DX: R01.1 Cardiac murmur, unspecified (principal); I10 Essential (primary) hypertension | CPT/HCPCS: 99213 ==

== ENCOUNTER 2025-02-23 00:53 | Outpatient (CLI) | payer MEDICARE, BC, SELFPAY ==
[2025-02-23 14:26] LABS: ALT 43 U/L (14-59); AST 25 U/L (15-37); Albumin 3.5 g/dL (3.4-5.0); Alkaline Phosphatase 81 U/L (46-116); Anion Gap 8.4 mmol/L (3-11); BUN 16 mg/dL (7-18); Bilirubin, Total 0.4 mg/dL (0.2-1.0); CO2 28.6 mmol/L (21.0-32.0); Calcium 9.4 mg/dL (8.5-10.1); Calculated LDL 63 mg/dL (<100); Chloride 103 mmol/L (98-107); Cholesterol 154 mg/dL (<200); Estimated GFR 76.79 (mL/min/1.73m2); Glucose 146 mg/dL (74-106); HDL Cholesterol 78 mg/dL (>or=50); Potassium 3.4 mmol/L (3.5-5.1); Sodium 140 mmol/L (136-145); Total Protein 7.4 g/dL (6.4-8.2); Triglyceride 67 mg/dL (<150)
[2025-02-23 14:28] LABS: Hemoglobin A1C 6.3 % (<5.7)
== END 2025-02-23 00:54 | disposition home or self-care (01) ==
LOC: LOS 00:54
PROVIDERS: PCP Nurse Practitioner Family; Visit Provider Nurse Practitioner Family
DX: R73.03 Prediabetes (principal); Z00.00 Encounter for general adult medical examination without abnormal findings; F41.9 Anxiety disorder, unspecified; F32.9 Major depressive disorder, single episode, unspecified; I10 Essential (primary) hypertension; E78.5 Hyperlipidemia, unspecified; M81.0 Age-related osteoporosis without current pathological fracture; J30.89 Other allergic rhinitis; K21.9 Gastro-esophageal reflux disease without esophagitis
CPT/HCPCS: 36415; 80053; 80061; 83036

== ENCOUNTER 2025-03-03 05:07 | Outpatient (CLI) | payer MEDICARE, BC, SELFPAY ==
--- NOTE | 2025-03-03 06:45 | DI.MAMMO_ITS ---
Exam(s) MAMMO SCREENING EXAM: MAMMO SCREENING CLINICAL HISTORY: screening,z12.39 TECHNIQUE: Mammograms were interpreted according to the usual protocol including computer analysis with CAD system, tomosynthesis and C-view imaging. COMPARISON: 2016 through 2023 FINDINGS: The breasts are composed of scattered fibroglandular densities, Breast Density category B. No suspicious masses or suspicious microcalcifications are seen. No skin thickening or abnormal axillary lymph nodes are seen. There has been no significant change from prior exams. IMPRESSION: BI-RADS Category 1, Negative mammogram Yearly screening mammography is recommended. Breast Density - Category B - There are scattered areas of fibroglandular density. Breast density Category C or D implies that the patient has dense breast tissue. Dense breast tissue can make it harder to find cancer on a mammogram. Dense breast tissue is also associated with an increased risk of breast cancer. This information about the result of the mammogram report was provided to the patient to raise their awareness. Use this report when you speak with the patient about their risks for breast cancer, which includes their family history. At that time, you may recommend additional screening tests (Ultrasound or MRI) as these tests may add significant information. A negative radiographic report should not delay biopsy if a dominant or clinically suspicious mass is present. Up to ten percent of cancers are not identified on mammography. A negative report may reinforce clinical impression. Adenosis and dense breasts may obscure an underlying neoplasm. False positive reports average 6 to 10%. Patient will receive a letter notifying them of these results.
== END 2025-03-03 05:27 ==
LOC: DI 05:07
PROVIDERS: PCP Nurse Practitioner Family; Visit Provider Nurse Practitioner Family
DX: Z12.31 Encounter for screening mammogram for malignant neoplasm of breast (principal); R92.323 Mammographic fibroglandular density, bilateral breasts
CPT/HCPCS: 77063; 77067

== ENCOUNTER → 2025-03-24 03:23 | Outpatient (CLI) | payer MEDICARE, BC, SELFPAY ==
--- NOTE | 2025-03-24 07:17 | DI.DEXA_ITS ---
Exam(s) XR DEXA BONE DENSITY W/WO LACEY EXAM: XR DEXA BONE DENSITY W/WO LACEY CLINICAL HISTORY: screening,ASYMPTOMATIC MENOPAUSAL STATE,Z78.0 TECHNIQUE: Routine DEXA evaluation of the lumbar spine, hip, or forearm. COMPARISON: CR XR DEXA BONE DENSITY W/WO LACEY from 01/10/2021 FINDINGS: Performed on a Hologic unit. Lateral image: No compression fracture evident. Lumbar Spine total T-score: -1.9. This is osteopenia range. Previous reading in December 2020 was -2.0, also osteopenia range. Hip total T-score:-0.5. The prior reading in December 2020 was -1.3 Independent reading at the level of the femoral neck yields T-score of -1.7 which is osteopenia range. Prior reading in December 2020 the femoral neck level was -1.8 Forearm total T-score: Not performed. Apparently prior bilateral wrist fractures. IMPRESSION: Bone mineral density measures in the osteopenia range. Fracture risk is moderate. Note: Any spine fracture indicates 5x risk for subsequent spine fracture and 2x risk for subsequent hip fracture. World Health Organization criteria for BMD interpretation classify patients: Normal...... T- Score at or above -1.0 Osteopenic... T- Score between -1.0 and -2.5 Osteoporosis... T-Score at or below -2.5
== END ==
LOC: DI 03:23
PROVIDERS: PCP Nurse Practitioner Family; Visit Provider Nurse Practitioner Family
DX: Z78.0 Asymptomatic menopausal state (principal); Z12.31 Encounter for screening mammogram for malignant neoplasm of breast; R92.323 Mammographic fibroglandular density, bilateral breasts
CPT/HCPCS: 77080

== ENCOUNTER → 2025-04-05 13:29 | Outpatient (BNVA) | payer MEDICARE, BC, SELFPAY | PROVIDERS: PCP Nurse Practitioner Family; Referring Provider Nurse Practitioner Family; Visit Provider Physical Therapy Assistant | DX: Z12.11 Encounter for screening for malignant neoplasm of colon (principal); Z86.0101 Personal history of adenomatous and serrated colon polyps ==

== ENCOUNTER 2025-04-24 09:47 | Day surgery (SDC) | payer MEDICARE, BC, SELFPAY ==
[2025-04-24 10:13] VITALS: BP 176/70; PULSE 92; RESP 16; TEMP 36.4; O2SAT 98
--- NOTE | 2025-04-24 10:20 | NUR.NOTE ---
pt states that she passed some soft brown stool this AM and did notice our charge nurse via phone prior to arrival. she was able to finish the prep yesterday and had been on clear liq prior to yesterdayNursing Note:
--- NOTE | 2025-04-24 10:33 | W.ANESPRE ---
General Info Date of Service Date Performed: 04/24/25 Height: 5 ft 1 in Weight: 73.1 kg Body Mass Index (BMI): 30.4 Surgical Procedure: Operation Date: 04/24/25 10:35 Proposed Procedure Side Surgeon lencho Benson MD Meds Allergies and Home Medications Allergies Allergy/AdvReac Type Severity Reaction Status Date / Time budesonide Allergy Mild ITCH Verified 04/24/25 10:03 formoterol Allergy Mild ITCH Verified 04/24/25 10:03 amlodipine AdvReac Intermediate ANKLE Verified 04/24/25 10:03 SWELLING DOG DANDER Allergy Mild Other (See Uncoded 04/24/25 10:03 Comment) DUST Allergy Mild Watery eyes Uncoded 04/24/25 10:03 Home Medication ?Medication ?Instructions ?Recorded calcium carbonate (Calcium 600) 600 mg PO DAILY 10/18/12 cholecalciferol (vitamin D3) 50 2,000 unit PO DAILY 12/08/18 mcg (2,000 unit) capsule multivitamin 1 cap PO DAILY 12/08/18 albuterol sulfate 90 mcg/actuation 2 puff inhalation Q4H PRN ##1 10/01/20 aerosol inhaler montelukast 10 mg tablet See Rx Instructions .Route 08/18/24 .COMPLEX #90 tabs pantoprazole 40 mg tablet,delayed See Rx Instructions .Route 08/18/24 release .COMPLEX #90 tabs diltiazem HCl 120 mg 120 mg PO BID #180 tab-caps 01/11/25 capsule,extended release 24 hr (Cardizem CD) fluticasone furoate 100 1 inh inhalation DAILY #60 ea 01/11/25 mcg-vilanterol 25 mcg/dose inhalation powder (Breo Ellipta) fluticasone propionate 50 1 spray NS BID #15.8 mL 01/11/25 mcg/actuation nasal spray,suspension losartan 100 1 tab PO DAILY #90 tab-caps 01/11/25 mg-hydrochlorothiazide 25 mg tablet (Hyzaar) potassium chloride 10 mEq 10 meq PO BID #180 tabs 01/11/25 tablet,extended release(part/cryst) atorvastatin 40 mg tablet 40 mg PO QPM #90 tabs 02/20/25 sertraline 100 mg tablet 100 mg PO DAILY #90 tabs 02/20/25 bisacodyl 5 mg tablet,delayed 5 mg PO ONCE #4 tabs 04/05/25 release (Dulcolax (bisacodyl)) polyethylene glycol 3350 17 17 g PO ONCE #238 grams 04/05/25 gram/dose oral powder Current Visit Medications: Current Medications Generic Name Dose Route Start Last Admin Trade Name Hammadq PRN Reason Stop Dose Admin Ringer's Solution 1,000 mls @ 80 mls/hr 04/24/25 06:00 IV 05/21/25 23:59 INFUSION LEOBARDO Sodium Chloride 0 ml 04/24/25 06:00 Normal Saline Flush 10 Ml Syr IV 05/21/25 23:59 PRN PRN Sodium Chloride 0 ml 04/24/25 06:00 Normal Saline 10 Ml Vial IJ 05/21/25 23:59 DIRECTED PRN Sterile Water 0 ml 04/24/25 06:00 Water,Injection,Sterile 10 Ml Vial IJ 05/21/25 23:59 DIRECTED PRN PFSH Active Problems Active Problems: Problem Status Onset Code Murmur, cardiac Acute R01.1 Closed fracture of left distal radius and ulna Acute 03/26/22 S52.502A, S52.602A Bilateral tinnitus Acute H93.13 Pre-diabetes Acute R73.03 Post herpetic neuralgia Acute B02.29 Osteoporosis Chronic M81.0 Osteopenia of hip Acute M85.859 Osteopenia of lumbar spine Acute M85.88 Dependent edema Acute R60.9 Hyperlipidemia Acute E78.5 Colon polyp Acute K63.5 GERD (gastroesophageal reflux disease) Chronic 12/19/14 K21.9 Essential hypertension Chronic 04/18/13 I10 Asthma Chronic J45.909 Anxiety and depression Chronic 12/19/14 F41.9, F32.9 Allergic rhinitis due to other allergen Chronic 10/12/13 J30.89 Medical History Medical History COVID-19 07/03/21 Shingles Verruca She can get [id number] salicylic acid topical to apply to warts daily or every other day. Return monthly or as needed for repeat of cyotherapy. History of ectopic Fracture of radius Loss of smell (12/19/14) Inversion of nipple left Surgical History Surgical History History of colonoscopy (~05/2019) History of bilateral salpingo-oophorectomy with [id number] History of esophagogastroduodenoscopy Status post operation on paranasal sinus sinus surgery (~2003) , Ectopic Abdominal hysterectomy (~1976) 1996 EGD - MAC (~2009) neg Colonoscopy - IV Sedation (12/02/12) NEGATIVE; DR. Ioana KING Bilateral salpingectomy with oophorectomy (~1976) 1980- ectopic, one tube removed Tobacco Smoking/Tobacco Use Status: Former Tobacco Use Passive smoking exposure: No Second hand exposure: Yes Alcohol Alcohol Intake: current Alcohol intake frequency: holidays/special occasions only Substance Use Substance use: Never Substance use type: does not use Vital Signs and Lab Results Vital Signs Most Recent Vital Signs in EMR: Most Recent Vital Signs Temp Pulse Resp BP Pulse Ox 36.4 C L 92 H 16 176/70 H 98 04/24/25 10:13 04/24/25 10:13 04/24/25 10:13 04/24/25 10:13 04/24/25 10:13 Imaging and Studies Imaging and Studies Study information below may be from another EMR and interpreted by another provider. Please see original notes in EMR for more complete details. EKG Summary: EKG PATIENT NAME: Juan Phillips UNIT #: [id number] ORDERING PROVIDER: Maricarmen Shook M.D. PRIMARY CARE PROVIDER: KIARA SHARPE NP DATE/TIME OF SERVICE: 09/03/23 1032 : 1950 PERFORMING LOCATION: .[facility] APPROVED REPORT Exam: Resting ECG Reason for Exam: baseline Patient Location: O HR:82 bpm ECG Measurements Heart Rate 82 AXIS [place] 170 P 19 QRSd 75 QRS 41 QT 360 T78 QTc 421 Conclusion Sinus rhythm...normal P axis, V-rate 50- 99 Normal Electrocardiogram Baseline wander in lead(s) I,II,aVR,aVF <Electronically signed by MARICARMEN SHOOK MD in OV> E-Sign Date: 09/03/23 E-Sign Time: 1148 Stress Test Summary: Stress ECG Conclusion 1. Resting electrocardiogram showed voltage for left ventricular hypertrophy 2. Patient exercised on the Rafael protocol and completed a workload of 7 METS limited by shortness of breath and fatigue 3. Resting hypertension. Normal hemodynamic response to exercise. Peak heart rate achieved was 94% of predicted for age 4. Electrocardiographically the test was consistent with myocardial ischemia 5. There were no significant dysrhythmias Light Treadmill Score is 5 which is Low risk. 04/15/21 Echocardiogram Summary: Patient Name: Juan Phillips Unit #: [id number] Loc: Ordering Provider: Kiara Sharpe NP Status: REG [facility] Primary Care Provider: Kiara Sharpe NP Date of Exam: 08/28/23 Sex: F Admission Date: 08/28/23 : 1950 Age: 73 APPROVED REPORT EXAM: Comprehensive 2D, Doppler, and color-flow Echocardiogram Patient Location: Out-Patient Sales Office Manager: Meagan Hewitt RDCS (AE) Indications: Cardiac murmur Other Information Study Quality: Adequate Conclusion Normal left ventricular wall thickness and chamber size. EF is 58 % . Wall motion is normal Normal right ventricualr size and function Both atria are normal in size The aortic valve is mildly sclerotic and trileaflet without stenosis or regurgitation Mild mitral annular calcification. Mild mitral regurgitation There is no significant change compared to an echocardiogram 03/07/2021 Wall motion Left Ventricle The left ventricle is normal size. The left ventricular systolic function is normal. The left ventricular ejection fraction is within the normal range. There is normal left ventricular wall thickness. There is normal LV segmental wall motion. There is no ventricular septal defect visualized. LVEF is 58%. Right Ventricle The right ventricle is normal size. The right ventricular systolic function is normal. Atria The left atrium size is normal. The right atrium size is normal. The interatrial septum is intact with no evidence for an atrial septal defect. Aortic Valve The Aortic valve is mildly sclerotic. Aortic valve is trileaflet. There is no aortic valvular stenosis. No aortic regurgitation is present. Mitral Valve Mild mitral annular calcification. No evidence of mitral valve stenosis. Mild mitral regurgitation. Tricuspid Valve The tricuspid valve is normal in structure. There is no tricuspid valve stenosis. Trace tricuspid regurgitation. Unable to assess PA pressure. Pulmonic Valve The pulmonary valve is normal in structure. There is no pulmonic valvular stenosis. Mild pulmonic regurgitation. Great Vessels The aortic root is normal in size. The ascending aorta is normal in size. Aortic arch is normal in caliber. IVC is normal in size and collapses >50% with inspiration. Pericardium There is no pericardial effusion. 2D Dimensions IVSD d PLAX 1.05 cm F: 0.6-1.0Ao Root d 2.39 cm F: 2.7 - 3.3 LVPW d PLAX 1.01 cm F: 0.6 - 1.0Ao Asc Diam d 2.81 cm F: 2.3 - 3.1 LVID d PLAX 4.00 cm F: 3.8 - 5.2 LVDs 2.76 cm F: 2.2 - 3.5 LV EF Teichholz 58.2 % FS30.23 % LV EDV (Teich)68.4 mL LV ESV (Teich)28.6 mL M-Mode TAPSE 2.06 cm (M/F) >1.7 Auto EF LV EDV A4C74.2 mLLV EDV A2C92.3 mLLV EDV BP82.7 mL LV ESV A4C30.8 mLLV ESV A2C39.2 mLLV ESV BP34.7 mL LVEF(%) A4C58.4 %LVEF(%) A2C57.6 %LVEF(%) BP58.1 % LV SV A4C43.4 mlLV SV A2C53.1 mlLV SV BP48.1 ml LV CO A4C3.4 L/minLV CO A2C3.7 L/minLV CO BP3.5 L/min HR A4C77.76 BPMHR A2C69.10 BPMLV EDV Index (BP) LA Volume LA Length A4C5.0 cmLA Length A2C5.2 cm LA Area A4C s 17.52 cm2LA Area A2C s 17.05 cm2 LA Vol A4C A-L52.19 mLLA Vol A2C A-L47.94 mLLA Vol Biplane A-L50.8 mL LA Vol/BSA A4C A-LLA Vol/BSA A2C A-LLA Vol/BSA BP A-L 28.9 mL/m2 LA Vol A4C MOD47.0 mLLA Vol A2C MOD46.4 mLLA Vol BP MOD47.2 mL RA Volume RA Area A4C12.8 cm2RA ESV A4C (A-L)32.1mLRA Vol/BSA A4C A-L RA Length A4C4.4 cmRA ESV A4C (MOD)30.4mL LV Diastology MV E' medial0.062 (>0.07 m/s)MV E Vmax 1.17 (0.4-1.3 m/s) MV E/E' MED19.04 (<14)MV A Vmax 1.25 (0.4-1.3 m/s) MV E' lateral0.062 (>0.1 m/s)E/A Ratio 0.9 MV E/E' LAT19.04 (<14) MV E' Average0.062 m/s MV E/E'(average)19.04 Aortic Valve AoV Vmax1.72 m/sLVOT Vmax 1.15 m/s AoV Peak Grad11.8 mmHgLVOT Peak Grad 5.3 mmHg AoV Area (Vmax)1.79 go4VYKN VTI0.244 m AoV VTI0.398 mLVOT Mean Grad 2.7 mmHg AoV Mean Lew.1.17 m/sLVOT SV 65.49 mL AoV Mean Grad6.3 mmHgLVOT Diam s 1.80 cm AoV Area (VTI)1.65 cm2 Velocity Ratio 0.67 Mitral Valve MV DT 190 (160-240 msec) MV Vmax TIPS 1.26 m/s MV Mean Grad 3.4 (<2mmHg) MV VTI 0.409 m Pulmonary Valve PV Vmax 1.99 (0.5-1.5 m/s)RVOT Vmax 1.01 m/s PV Peak Grad 15.8 mmHgRVOT Peak Gr.4.1 mmHg PV Mean Vel1.39 m/sRVOT VTI0.263 m PV Mean Grad 9.0 mmHgRVOT Mean Gr.2.7 mmHg Tricuspid Valve RA Pressure 3.00 mmHg TV S'0.14 m/s Ordered By: Kiara Sharpe NP CC: Dictated By: Maricarmen Shook M.D. 08/28/23 1334 <Electronically signed by Maricarmen Shook M.D. in OV> 08/28/23 1348 Transcribed By: Maricarmen Shook MD 08/28/23 1334 This is privileged, confidential information intended only for the provider named. Any use or distribution by any person other than this provider is strictly prohibited. If you receive this report in error, please notify us immediately at [phone] and return the original report to us at the address above. Thank-you. Pulmonary Function Summary: Pulmonary Function Test PATIENT NAME: JUAN PHILLIPS UNIT #: [id number] ADMITTING PROVIDER: SIMI PHELPS MD PRIMARY CARE PROVIDER: JOSE ANGEL WALTON DO DATE OF ADMIT: 10/05/18 : 1950 PULMONARY FUNCTION TEST REPORT Patient - Juan Phillips 48 DATE OF SERVICE October 05, 2018 REQUESTING PROVIDER Jose Angel Walton D.O. INTERPRETATION OF STUDY Spirometry shows no evidence of obstructive airways disease. No bronchodilator response. LUNG VOLUMES - Lung volumes show no evidence of restriction. DIFFUSION CAPACITY- Normal. AIRWAY RESISTANCE - Normal. IMPRESSION Normal pulmonary function study. Clinical correlation recommended. When this study was compared to previous one from 05/06/12, the patient has a stable FVC and FEV1. Ben Renteria T- 10/06/18 Dictated by: SIMI PHELPS MD Dict Date: 10/05/18 Dict Time: 0000 <Electronically signed by SIMI PHELPS MD> Date: 10/12/18 Time: 909 Anesthesia Assessment and Plan Anesthesia History Personal History: No History of Anesthesia Complications Family History: No Family History of Anesthesia Complications Exercise Tolerance Exercise Tolerance: Metabolic Equivalents>4 Pertinent Negatives Pertinent Negatives: No Symptoms of GERD (Well controlled), No Major Cardiovascular Symptoms or Complaints, No Major Pulmonary Symptoms or Complaints and No History of CVA/TIA Cardiac & Pulmonary Exam Cardiac Exam: Normal S1/S2 Heart Sounds Pulmonary Exam: Clear Bilateral Breath Sounds Implantable Cardiac Device Does patient have a Pacemaker or an ICD?: No Airway Exam Known Difficult Airway: No Mallampati Class: 3 Mouth Opening: Narrow (< 3cm) Thyromental Distance: Less than 3 cm Neck Range of Motion: Limited ROM Neck Circumference: Normal Teeth Condition: Normal Dentition Airway Comments: Patient with history of allergies and postnasal drip. Reports it is her baseline ASA Classification ASA Score: ASA 2 Emergency Case?: No NPO Status NPO Status: NPO Clears >2 hours, Solids >8 hours Anesthesia Plan Resuscitation Status: Full Code Anesthesia Technique: General Anesthesia Airway Planned: Natural Airway Monitors Used: Standard Monitors
[2025-04-24] MEDS: Lactated Ringers 1,000 ML 80 ML IV (10:35)
[2025-04-24 10:48] VITALS: BMI 30.4
--- NOTE | 2025-04-24 11:15 | BOWEL_PTH ---
PATIENT: Carisa Phillips LOC: [facility] U#:[id number] AGE/SX: 74/F ROOM: RE04/24/[address]: Duane Benson : 1950 BED: DIS: 04/24/2025 SPEC #: [id number] RECD: 04/24/25 12:58 STATUS: [facility] #: [id number] LEONEL: 04/24/25 11:[address]: Duane Benson DEPT: Surgical Specimen RECD BY: Mary Beth Lanza ENTERED: 04/24/25 12:59 SP TYPE: Bowel OTHR DR: Kiara Thorpe, MENDY Tissues: 1 - BIOPSY BOWEL Procedures: GROSS AND MICRO LEVEL 4 Comments: [id number]
[2025-04-24 11:29] VITALS: BP 146/65; PULSE 81; RESP 18; TEMP 36.3; O2SAT 100
--- NOTE | 2025-04-24 11:30 | W.COLOREPORT ---
Date of service: 04/24/25 Time of Service: 11:30 Colonoscopy Report Procedure Description: PROCEDURES PERFORMED: 1. Colonoscopy with cold forceps polypectomy x1 PREOPERATIVE DIAGNOSIS: Surveillance colonoscopy, colon polyps POSTOPERATIVE DIAGNOSIS: Colorectal polyps, sigmoid diverticulosis, sigmoid fibrosis, grade 2 internal hemorrhoids SURGEON: Carmelina Benson MD INDICATION FOR PROCEDURE: the patient is a 74-year-old woman with hx of adenomatous polyps removed on her last colonoscopy. No fam hx of colon cancer. No sx. FINDINGS: Relatively poor prep. Colon cancer is definitively ruled out but small and medium?size polyps could have been missed in various locations in her colon. Normal terminal ileum. Polyps: In the cecum, a 2-3 mm sessile polyp was removed with cold forceps technique. There was significant diverticular disease in the sigmoid colon. There is no stricture or active inflammation but there is notable fibrosis in this region and navigating it was somewhat difficult for a short segment. Grade 2 internal hemorrhoids are present in the rectum. SURVEILLANCE interval/FOLLOW-UP: Repeat in 3 years is recommended because of the polyp history and the poor prep. She should do an extended prep next time. SPECIMENS: Yes EBL: Minimal COMPLICATIONS: None QUALITY of prep: Relatively poor. Adequate in some areas but other areas it was poor and small and medium?size polyps could have been missed. Colon cancer and/or large polyps would not have been missed. Procedure in detail: The patient gave written consent and was in agreement with the indications, the potential risks as well as the benefits of the procedure. They were taken to the endoscopy suite and laid in the left lateral decubitus position. A timeout was performed and anesthesia was administered which was tolerated well. I started the procedure. Digital rectal and visual examination was performed and grossly within normal limits. A well-lubricated flexible colonoscope was then introduced and passed without any notable difficulty all the way to the cecum identified by the ileocecal valve and the appendiceal orifice. The terminal ileum was briefly, superficially intubated and looked normal. The scope was then slowly withdrawn with the above-noted findings. The patient tolerated the procedure well and was taken to the PACU in hemodynamically stable condition.
--- NOTE | 2025-04-24 11:35 | W.ANESPOSTOP ---
Postoperative Evaluation Date, Time and Location Date Performed: 04/24/25 Time Performed: 11:28 Patient Location: Day Surgery Unit Vital Signs Most Recent Imported Vital Signs: Most Recent Vital Signs Temp Pulse Resp BP Pulse Ox 36.3 C L 81 18 146/65 H 100 04/24/25 11:29 04/24/25 11:29 04/24/25 11:29 04/24/25 11:29 04/24/25 11:29 Pain Score Most Recent Pain Score: Most Recent Pain Score Pain Level 0 04/24/25 11:29 Assessment Mental Status: Arousable with meaningful communication Airway and Respiratory Function: Patent airway with normal (patient baseline) respiratory exam Cardiovascular Function: Hemodynamically Stable Hydration Status: Adequately Hydrated Nausea & Vomiting: No Nausea or Vomiting Pain: Pt. Denies Any Pain Peripheral Nerve Block: Patient did not receive a nerve block
--- NOTE | 2025-04-24 11:36 | W.PM.DSUDISC ---
Date of service: 04/24/25 Discharge Plan Disposition Patient Disposition: Home Condition: Good Discharge Details Attending Provider: Duane Benson Primary Care Provider: Kiara Thorpe Home Meds and New Rx's Prescriptions: No Action atorvastatin 40 mg tablet 40 mg PO QPM Qty: 90 3RF bisacodyl [Dulcolax (bisacodyl)] 5 mg tablet,delayed release (DR/EC) 5 mg PO ONCE Qty: 4 0RF Rx Instructions: Take per colonoscopy instructions provided by ordering providers office polyethylene glycol 3350 17 gram/dose powder 17 g PO ONCE Qty: 238 0RF Rx Instructions: Take per colonoscopy instructions provided by ordering providers office cholecalciferol (vitamin D3) 2,000 unit capsule 2,000 unit PO DAILY multivitamin Capsule 1 cap PO DAILY calcium carbonate [Calcium 600] 600 MG tablet 600 mg PO DAILY albuterol sulfate 90 mcg/actuation HFA aerosol inhaler 2 puff Inhalation Q4H PRN Qty: 1 5RF pantoprazole 40 mg tablet,delayed release (DR/EC) See Rx Instructions .ROUTE .COMPLEX Qty: 90 3RF Dose Instruction: TAKE 1 TABLET DAILY Rx Instructions: TAKE 1 TABLET DAILY montelukast 10 mg tablet See Rx Instructions .ROUTE .COMPLEX Qty: 90 3RF Dose Instruction: TAKE 1 TABLET DAILY Rx Instructions: TAKE 1 TABLET DAILY fluticasone propionate 50 mcg/actuation spray,suspension 1 spray NS BID Qty: 15.8 4RF diltiazem HCl [Cardizem CD] 120 mg capsule,extended release 24hr 120 mg PO BID Qty: 180 3RF fluticasone furoate-vilanterol [Breo Ellipta] 100-25 mcg/dose blister with device 1 inh IH DAILY Qty: 60 11RF losartan-hydrochlorothiazide [Hyzaar] 100-25 mg tablet 1 tab PO DAILY Qty: 90 3RF potassium chloride 10 mEq tablet,ER particles/crystals 10 meq PO BID Qty: 180 3RF sertraline 100 mg tablet 100 mg PO DAILY Qty: 90 4RF Discharge Instructions Additional Instructions: FINDINGS: No colon cancer. Another polyp was found and removed. It has nothing to worry about. The prep was poor in some areas. Again, nothing to worry about, but small polyps could have been missed in those areas. Because of this I recommend doing another colonoscopy in 3 years. You should do an extended prep next time. You have diverticulosis and hemorrhoid disease. These conditions are extremely common, benign and nothing needs to be done about them. Stand Alone Forms: Portal Information Activity:: Activity as Tolerated Diet:: As Tolerated
[2025-04-24 12:00] VITALS: BP 150/66; PULSE 82; RESP 18; TEMP 36.4; O2SAT 94
== END 2025-04-24 12:37 | disposition home or self-care (01) ==
PROVIDERS: PCP Nurse Practitioner Family; Visit Provider Student in an Organized Health Care Education/Training Program
PROC: 0DJD8ZZ Inspection of Lower Intestinal Tract, Via Natural or Artificial Opening Endoscopic (ICD-10-PCS; CPT 45378; principal; 2025-04-24 10:30)
DX: Z12.11 Encounter for screening for malignant neoplasm of colon (principal); D12.0 Benign neoplasm of cecum; K57.30 Diverticulosis of large intestine without perforation or abscess without bleeding; K64.1 Second degree hemorrhoids; I10 Essential (primary) hypertension
CPT/HCPCS: 45380; 88305; J2704